=== PATIENT | female | born 1945 | race Caucasian/White ===

== ENCOUNTER 2018-09-01 09:48 | Day surgery (SDC) | payer MEDICARE, BC ==
[2018-08-31 11:35] LABS: BASOPHILS # (AUTO) 0.1 X10'3 (0-0.2); BASOPHILS % (AUTO) 1.2 % (0-1); EOSINOPHILS # (AUTO) 0.1 X10'3 (0-0.9); EOSINOPHILS % (AUTO) 2.2 % (0-6); HEMATOCRIT 40.2 % (35.0-45.0); HEMOGLOBIN 13.5 g/dl (12.0-16.0); LYMPHOCYTES # (AUTO) 1.3 X10'3 (1.1-4.8); LYMPHOCYTES % (AUTO) 22.2 % (21-51); MEAN CORPUSCULAR HEMOGLOBIN 30.4 PG (27.0-31.0); MEAN CORPUSCULAR HGB CONC 33.7 % (33.0-36.5); MEAN CORPUSCULAR VOLUME 90.1 FL (78-98); MEAN PLATELET VOLUME 7.2 FL (7.4-10.4); MONOCYTES # (AUTO) 0.3 X10'3 (0-0.9); MONOCYTES % (AUTO) 5.4 % (2-12); NEUTROPHILS # (AUTO) 4.1 X10'3 (1.8-7.7); PLATELET COUNT 202 X10'3 (140-440); RED BLOOD COUNT 4.46 X10'6 (4.20-5.60); RED CELL DISTRIBUTION WIDTH 13.3 % (11.5-14.5)
[2018-08-31 11:47] LABS: ALBUMIN 3.8 G/DL (3.4-5.0); ANION GAP 6 (8-16); BLOOD UREA NITROGEN 23 MG/DL (7-18); BUN/CREATININE RATIO 29.5 (6.6-38.0); CALCIUM 9.5 MG/DL (8.5-10.1); CHLORIDE 102 MMOL/L (99-107); CREATININE 0.78 MG/DL (0.40-0.90); GLUCOSE 111 MG/DL (70-104); SODIUM 139 MMOL/L (135-145); TOTAL CARBON DIOXIDE 30.6 MMOL/L (24-32); eGFR 73 ML/MIN
[2018-08-31 11:49] LABS: PARTIAL THROMBOPLASTIN TIME 30 SECONDS (22-32); PROTHROMBIN TIME 10.2 SECONDS (9.0-12.0)
[~2018-09-01] VITALS: Ht 165.1 cm; Wt 71.8 kg
[2018-09-01] VITALS (11 sets, daily range): BP systolic 104–161; BP diastolic 55–92
[2018-09-01] MEDS ORDERED: ceFAZolin 1,000 MG in NS 100ML IVPB IV ONE ×2 (10:15→19:00)
[2018-09-01] MEDS ORDERED: PANT-47 PO (11:03)
[2018-09-01] MEDS ORDERED: midazolam 2 mg/2 ml injection ONE ×3 (11:57→13:48)
[2018-09-01] MEDS ORDERED: fentaNYL/PF 50MCG/1 ML 2ML syringe ONE ×3 (11:57→13:48)
[2018-09-01] MEDS ORDERED: ceFAZolin 1GM/D5W- ADD-VANTAGE 50 ML IV ONE (11:59)
[2018-09-01] MEDS ORDERED: ceFAZolin 1000mg inj ONE (11:59)
[2018-09-01] MEDS ORDERED: lidocaine 1%/epinephrine 1:100,000 injection 50ml vial ONE (11:59)
[2018-09-01] MEDS ORDERED: pantoprazole 40 MG vial IV ONE (12:00)
[2018-09-01] MEDS ORDERED: HYDROcodone/acetaminophen 10/325mg tab PO PRN (14:45)
[2018-09-01] MEDS: HYDROcodone/acetaminophen 5mg/325mg tablet PO PRN ×2 (14:56→19:03)
== END 2018-09-01 19:30 | disposition home or self-care (01) ==
LOC: SSTAY O 09:48
PROVIDERS: ATTEND Internal Medicine Cardiovascular Disease
DX: I49.5 Sick sinus syndrome (principal); E11.9 Type 2 diabetes mellitus without complications; E66.9 Obesity, unspecified; E55.9 Vitamin D deficiency, unspecified; I10 Essential (primary) hypertension; E78.5 Hyperlipidemia, unspecified; Z96.651 Presence of right artificial knee joint; Z88.5 Allergy status to narcotic agent; Z90.49 Acquired absence of other specified parts of digestive tract; Z68.26 Body mass index [BMI] 26.0-26.9, adult; Z90.710 Acquired absence of both cervix and uterus; Z98.890 Other specified postprocedural states; Z79.899 Other long term (current) drug therapy
CPT/HCPCS: 33208; 36415; 71046; 80048; 85025; 85610; 85730; 93005; 99152; 99153; C1785; C1898; C9113; J0690; J2250; J3010; J3490; A4565; C1894

== ENCOUNTER 2018-12-06 12:12 | Outpatient (CLI) | payer MEDICARE, BC ==
[2018-12-06] VITALS (21 sets, daily range): BP systolic 108–138; BP diastolic 66–85
[~2018-12-06 12:12] MED LIST: PANT-47 PO
== END 2018-12-06 23:59 | disposition home or self-care (01) ==
LOC: CARD DIAG 12:12
PROVIDERS: ATTEND Internal Medicine Cardiovascular Disease
DX: R42 Dizziness and giddiness (principal); Z96.651 Presence of right artificial knee joint; Z88.5 Allergy status to narcotic agent
CPT/HCPCS: 93660

== ENCOUNTER 2019-07-24 19:16 | Inpatient (IN) | payer MEDICARE, BC ==
[~2019-07-24] VITALS: Ht 165.1 cm; Wt 77.2 kg
[2019-07-24] MEDS ORDERED: ondansetron/PF 4mg/2ml inj IV ONE (19:55)
[2019-07-24] MEDS ORDERED: acetaminophen 325mg tablet PO ONE (19:55)
[2019-07-24] MEDS ORDERED: nitroGLYCERIN 0.4mg SUBLingual tab SL PRN (19:55)
[2019-07-24] MEDS ORDERED: aspirin 81mg tab.chew PO ONE (19:55)
[2019-07-24 20:01] LABS: BASOPHILS # (AUTO) 0.1 X10'3 (0-0.2); BASOPHILS % (AUTO) 0.9 % (0-1); EOSINOPHILS # (AUTO) 0.1 X10'3 (0-0.9); EOSINOPHILS % (AUTO) 1.8 % (0-6); HEMATOCRIT 40.7 % (35.0-45.0); HEMOGLOBIN 13.9 g/dl (12.0-16.0); LYMPHOCYTES % (AUTO) 15.2 % (21-51); MEAN CORPUSCULAR HEMOGLOBIN 30.7 PG (27.0-31.0); MEAN CORPUSCULAR HGB CONC 34.2 g/dL (33.0-36.5); MEAN CORPUSCULAR VOLUME 89.6 FL (78-98); MEAN PLATELET VOLUME 7.6 FL (7.4-10.4); MONOCYTES # (AUTO) 0.3 X10'3 (0-0.9); MONOCYTES % (AUTO) 4.7 % (2-12); NEUTROPHILS # (AUTO) 5.2 X10'3 (1.8-7.7); NEUTROPHILS % (AUTO) 77.4 % (42-75); PLATELET COUNT 164 X10'3 (140-440); RED BLOOD COUNT 4.54 X10'6 (4.20-5.60); RED CELL DISTRIBUTION WIDTH 13.1 % (11.5-14.5); WHITE BLOOD COUNT 6.7 X10'3 (4.5-11.0)
[2019-07-24 20:11] LABS: PARTIAL THROMBOPLASTIN TIME 29 SECONDS (22-32)
[2019-07-24 20:13] LABS: ALANINE AMINOTRANSFERASE 38 U/L (12-78); ALBUMIN 3.8 G/DL (3.4-5.0); ALKALINE PHOSPHATASE 70 IU/L (46-116); ANION GAP 7 (8-16); ASPARTATE AMINO TRANSFERASE 60 U/L (10-37); BILIRUBIN,TOTAL 0.4 MG/DL (0.1-1.0); BLOOD UREA NITROGEN 15 MG/DL (7-18); CALCIUM 9.3 MG/DL (8.5-10.1); CHLORIDE 105 MMOL/L (99-107); CREATININE 0.79 MG/DL (0.40-0.90); GLUCOSE 123 MG/DL (70-104); POTASSIUM 3.7 MMOL/L (3.5-5.1); SODIUM 139 MMOL/L (135-145); TOTAL CARBON DIOXIDE 26.8 MMOL/L (24-32); TOTAL PROTEIN 7.6 G/DL (6.4-8.2); eGFR 71 ML/MIN
[2019-07-24] MEDS ORDERED: enoxaparin 100mg/ml syringe SUBCUT ONE (20:20)
--- NOTE | 2019-07-24 20:22 | NUR ---
rec'd call from [facility] - they state the pacer is functionally properly. She is having an occasional PVC and did have one high ventricular rate but it was not long enough to record. She is A paced 80% and V paced 72%
[2019-07-24] MEDS ORDERED: enoxaparin 80mg/0.8ml syringe SUBCUT ONE (20:25)
[2019-07-24] MEDS ORDERED: POTASSIUM PO (20:49)
[2019-07-24] MEDS ORDERED: FURO40TA4 PO (20:49)
[2019-07-24] MEDS ORDERED: TRAZ-251 PO (20:49)
[2019-07-24] MEDS ORDERED: OMEP-50 PO (20:49)
[2019-07-24] MEDS ORDERED: heparin 25,000 UNIT/250ml bag 250 ML IV SCH (20:54)
[2019-07-24] MEDS ORDERED: heparin 10,000 units/1 ML INJ IV ONE (20:55)
[2019-07-24] MEDS ORDERED: tirofiban 5mg in NS 100mL 100 ML IV SCH (20:55)
[2019-07-24] MEDS ORDERED: atorvastatin 20mg tablet PO SCH (21:00)
--- NOTE | 2019-07-24 21:10 | NUR ---
PER PHARMACY THEY WILL RETIME THE HEPARIN DRIP FOR 0300 AND CANCEL THE BOLUS SINCE THE PATIENT GOT LOVENOX. I CANCELLED THE PTT AND RETIMED IT FOR 0230 SO WE WOULD HAVE THE RESULT PRIOR TO STARTING THE HEPARIN. OK TO START AGGRASTAT DIRECTED ON MAR
[2019-07-24] MEDS ORDERED: HYDROcodone/acetaminophen 5mg/325mg tablet PO PRN (21:15)
[2019-07-24] MEDS ORDERED: magnesium hydroxide 30ml (MOM) UD suspension PO PRN (21:15)
[2019-07-24] MEDS ORDERED: ondansetron/PF 4mg/2ml inj IV PRN (21:15)
[2019-07-24] MEDS ORDERED: acetaminophen 325mg tablet PO PRN (21:15)
[2019-07-24] MEDS ORDERED: tirofiban 12.5mg in NS 250mL 250 ML IV SCH (21:19)
--- NOTE | 2019-07-24 21:30 | NUR ---
received pt report from Yoig TSANG in the ER. Had opportunity to ask questions.
--- NOTE | 2019-07-24 21:45 | NUR ---
pt arrived to unit with all belongings, tele attached, call light in reach, pt oriented to unit, VS stable.
[2019-07-24 22:00] VITALS: BP 136/77
[2019-07-24] MEDS: normal saline 1000ml 1,000 ML IV SCH (22:24)
[2019-07-25] VITALS (17 sets, daily range): BP systolic 99–128; BP diastolic 42–77
[2019-07-25] MEDS: mag hydrox/Alum hydrox/simeth 30ml oral suspension PO PRN ×3 (00:10→19:28)
[2019-07-25 01:44] LABS: BASOPHILS % (AUTO) 0.6 % (0-1); EOSINOPHILS # (AUTO) 0.1 X10'3 (0-0.9); EOSINOPHILS % (AUTO) 1.2 % (0-6); HEMATOCRIT 36.4 % (35.0-45.0); HEMOGLOBIN 12.5 g/dl (12.0-16.0); LYMPHOCYTES # (AUTO) 0.9 X10'3 (1.1-4.8); LYMPHOCYTES % (AUTO) 15.9 % (21-51); MEAN CORPUSCULAR HEMOGLOBIN 30.9 PG (27.0-31.0); MEAN CORPUSCULAR HGB CONC 34.4 g/dL (33.0-36.5); MEAN CORPUSCULAR VOLUME 89.8 FL (78-98); MEAN PLATELET VOLUME 7.5 FL (7.4-10.4); MONOCYTES # (AUTO) 0.3 X10'3 (0-0.9); MONOCYTES % (AUTO) 5.2 % (2-12); NEUTROPHILS # (AUTO) 4.6 X10'3 (1.8-7.7); NEUTROPHILS % (AUTO) 77.1 % (42-75); PLATELET COUNT 163 X10'3 (140-440); RED BLOOD COUNT 4.06 X10'6 (4.20-5.60); RED CELL DISTRIBUTION WIDTH 13.3 % (11.5-14.5); WHITE BLOOD COUNT 5.9 X10'3 (4.5-11.0)
[2019-07-25 02:00] LABS: ANION GAP 4 (8-16); BLOOD UREA NITROGEN 16 MG/DL (7-18); BUN/CREATININE RATIO 17.2 (6.6-38.0); CALCIUM 8.5 MG/DL (8.5-10.1); CHLORIDE 108 MMOL/L (99-107); CHOL/HDL RATIO 2.3 (0.00-4.99); CHOLESTEROL 126 MG/DL (0-200); CREATININE 0.93 MG/DL (0.40-0.90); GLUCOSE 142 MG/DL (70-104); HDL CHOLESTEROL 54 MG/DL (35-60); LDL CHOLESTEROL 67 MG/DL (50-100); POTASSIUM 4.2 MMOL/L (3.5-5.1); SODIUM 142 MMOL/L (135-145); TOTAL CARBON DIOXIDE 30.4 MMOL/L (24-32); TRIGLYCERIDES 62 MG/DL (20-135); eGFR 59 ML/MIN
[2019-07-25] MEDS ORDERED: heparin 25,000 UNIT/250ml bag 250 ML IV SCH ×2 (03:00)
[2019-07-25] MEDS ORDERED: heparin 10,000 units/1 ML INJ IV PRN (06:00)
--- NOTE | 2019-07-25 06:22 | NUR ---
Problems reprioritized. Patient report given, questions answered & plan of care reviewed with Minal Nathan RN.
--- NOTE | 2019-07-25 06:54 | NUR ---
Patient in room PCU 3012. I have received report from TRINH Hussein and had the opportunity to ask questions and assume patient care.
[2019-07-25] MEDS: normal saline 1000ml 1,000 ML IV SCH ×2 (07:12→17:12)
[2019-07-25] MEDS ORDERED: nitroGLYCERIN-Tridil 50MG/D5W 250 ML IV ONE (07:50)
[2019-07-25] MEDS ORDERED: iohexol 350 MG/ML 50ML vial IV ONE (07:51)
[2019-07-25] MEDS ORDERED: fentaNYL/PF 50MCG/1 ML 2ML syringe ONE (07:51)
[2019-07-25] MEDS ORDERED: midazolam 2 mg/2 ml injection ONE (07:51)
[2019-07-25] MEDS ORDERED: LIDOcaine 1% (10mg/ml)w/preservative injection 20ml MDV ONE (07:51)
[2019-07-25] MEDS ORDERED: iohexol 350MG/ML 100ml bottle IV ONE (07:51)
[2019-07-25] MEDS ORDERED: heparin 1,000unit/ml 10ml vial 10 ML ONE (07:51)
[2019-07-25] MEDS: atorvastatin 20mg tablet PO SCH (07:52)
[2019-07-25] MEDS: aspirin 81mg tablet.DR PO SCH (07:52)
[2019-07-25] MEDS ORDERED: metoprolol tartrate 12.5mg (1/2 tablet) PO SCH (08:00)
[2019-07-25] MEDS ORDERED: POTA10TA10 PO (08:12)
[2019-07-25] MEDS: acetaminophen 325mg tablet PO PRN ×2 (09:52→22:34)
[2019-07-25] MEDS: losartan 25mg tablet PO SCH (12:05)
--- NOTE | 2019-07-25 18:40 | NUR ---
Problems reprioritized. Patient report given, questions answered & plan of care reviewed with David TSANG. Patient stable at transfer of care.
--- NOTE | 2019-07-25 18:56 | NUR ---
Patient in room PCU 3012. I have received report from Minal TSANG and had the opportunity to ask questions and assume patient care.
[2019-07-25] MEDS: carvedilol 6.25mg tablet PO SCH (19:29)
[2019-07-26 02:30] VITALS: BP 120/59
[2019-07-26] MEDS: normal saline 1000ml 1,000 ML IV SCH (03:08)
[2019-07-26 05:55] LABS: BASOPHILS % (AUTO) 0.5 % (0-1); EOSINOPHILS # (AUTO) 0.2 X10'3 (0-0.9); EOSINOPHILS % (AUTO) 4.7 % (0-6); HEMATOCRIT 32.7 % (35.0-45.0); HEMOGLOBIN 11.3 g/dl (12.0-16.0); LYMPHOCYTES # (AUTO) 1.1 X10'3 (1.1-4.8); LYMPHOCYTES % (AUTO) 26.2 % (21-51); MEAN CORPUSCULAR HEMOGLOBIN 31.3 PG (27.0-31.0); MEAN CORPUSCULAR HGB CONC 34.4 g/dL (33.0-36.5); MEAN CORPUSCULAR VOLUME 90.8 FL (78-98); MEAN PLATELET VOLUME 7.7 FL (7.4-10.4); MONOCYTES # (AUTO) 0.3 X10'3 (0-0.9); MONOCYTES % (AUTO) 6.3 % (2-12); NEUTROPHILS # (AUTO) 2.6 X10'3 (1.8-7.7); NEUTROPHILS % (AUTO) 62.3 % (42-75); PLATELET COUNT 126 X10'3 (140-440); RED CELL DISTRIBUTION WIDTH 13.2 % (11.5-14.5); WHITE BLOOD COUNT 4.1 X10'3 (4.5-11.0)
[2019-07-26 06:05] LABS: ALBUMIN 2.7 G/DL (3.4-5.0); ANION GAP 6 (8-16); BLOOD UREA NITROGEN 17 MG/DL (7-18); BUN/CREATININE RATIO 22.7 (6.6-38.0); CHLORIDE 111 MMOL/L (99-107); CREATININE 0.75 MG/DL (0.40-0.90); GLUCOSE 84 MG/DL (70-104); POTASSIUM 4.3 MMOL/L (3.5-5.1); SODIUM 145 MMOL/L (135-145); TOTAL CARBON DIOXIDE 28.1 MMOL/L (24-32); eGFR 76 ML/MIN
--- NOTE | 2019-07-26 06:14 | NUR ---
Problems reprioritized. Patient report given, questions answered & plan of care reviewed with Minal TSANG.
--- NOTE | 2019-07-26 06:22 | NUR ---
Patient in room PCU 3012. I have received report from David TSANG and had the opportunity to ask questions and assume patient care.
[2019-07-26 07:12] VITALS: BP 144/67
[2019-07-26] MEDS: losartan 25mg tablet PO SCH (08:21)
[2019-07-26] MEDS: carvedilol 6.25mg tablet PO SCH (08:21)
[2019-07-26] MEDS: aspirin 81mg tablet.DR PO SCH (08:21)
[2019-07-26] MEDS: acetaminophen 325mg tablet PO PRN (08:23)
[2019-07-26] MEDS ORDERED: spironolactone 25 MG tablet PO SCH (08:30)
[2019-07-26] MEDS: atorvastatin 20mg tablet PO SCH (08:37)
[2019-07-26 12:09] VITALS: BP 136/66
[2019-07-26] MEDS: mag hydrox/Alum hydrox/simeth 30ml oral suspension PO PRN (12:20)
[2019-07-26] MEDS ORDERED: SPIR25TA PO (12:28)
[2019-07-26] MEDS ORDERED: CARV6.253 PO (12:28)
[2019-07-26] MEDS ORDERED: ATOR20TA66 PO (12:28)
[2019-07-26] MEDS ORDERED: ASPI-1071 PO (12:28)
[2019-07-26] MEDS ORDERED: LOSA25TA41 PO (12:28)
[2019-07-26 15:00] VITALS: BP 50/66
--- NOTE | 2019-07-26 17:30 | NUR ---
Patient discharged at 1634 home with . Patient reviewed discharge packet before signing and being sent home along with all other belongings. Patient new Rx's were called in to [facility] in [place]. PIV was removed with cannula intact and telemetry monitoring was d/c'd. Patient was wheeled down by staff and left via private vehicle with .
== END 2019-07-26 16:33 | disposition home or self-care (01) | DRG 286 ==
LOC: ER 19:16 → PCU 3S 21:35
PROVIDERS: ADMIT Hospitalist; ATTEND Family Medicine
PROC: 4B02XSZ Measurement of Cardiac Pacemaker, External Approach (ICD-10-PCS; principal; 2019-07-24)
PROC: B2111ZZ Fluoroscopy of Multiple Coronary Arteries using Low Osmolar Contrast (ICD-10-PCS; 2019-07-25)
PROC: B2151ZZ Fluoroscopy of Left Heart using Low Osmolar Contrast (ICD-10-PCS; 2019-07-25)
PROC: 4A023N8 Measurement of Cardiac Sampling and Pressure, Bilateral, Percutaneous Approach (ICD-10-PCS; 2019-07-25)
DX: I51.81 Takotsubo syndrome (principal); I50.21 Acute systolic (congestive) heart failure; I50.9 Heart failure, unspecified; E11.9 Type 2 diabetes mellitus without complications; G24.9 Dystonia, unspecified; I25.10 Atherosclerotic heart disease of native coronary artery without angina pectoris; I49.5 Sick sinus syndrome; Z96.651 Presence of right artificial knee joint; G89.29 Other chronic pain; M54.5 Low back pain; Z88.6 Allergy status to analgesic agent; Z79.82 Long term (current) use of aspirin; Z90.710 Acquired absence of both cervix and uterus; Z95.0 Presence of cardiac pacemaker; Z98.49 Cataract extraction status, unspecified eye
CPT/HCPCS: 36415; 71045; 80048; 80053; 80061; 83880; 84484; 85025; 85347; 85610; 85730; 87081; 93005; 93306; 93458; 96372; 96374; 99152; 99153; 99291; A4620; A6258; C1760; C1769; G0378; J1644; J1650; J2001; J2250; J2405; J3010; J3246; J3490; J7030; Q9967

== ENCOUNTER 2019-10-13 11:33 | Inpatient (IN) | payer MEDICARE, BC ==
[~2019-10-13] VITALS: Ht 165.1 cm; Wt 75.5 kg
[~2019-10-13 11:33] MED LIST changes: +ASPI-1071 PO; +ATOR20TA66 PO; +CARV6.253 PO; +FURO40TA4 PO; +LOSA25TA41 PO; +OMEP-50 PO; -PANT-47 PO; +POTA10TA10 PO; +SPIR25TA PO; +TRAZ-251 PO
[2019-10-13 12:49] LABS: BASOPHILS # (AUTO) 0.1 X10'3 (0-0.2); BASOPHILS % (AUTO) 0.8 % (0-1); EOSINOPHILS # (AUTO) 0.2 X10'3 (0-0.9); EOSINOPHILS % (AUTO) 3.6 % (0-6); HEMATOCRIT 40.6 % (35.0-45.0); LYMPHOCYTES # (AUTO) 1.6 X10'3 (1.1-4.8); LYMPHOCYTES % (AUTO) 25.5 % (21-51); MEAN CORPUSCULAR HEMOGLOBIN 30.7 PG (27.0-31.0); MEAN CORPUSCULAR HGB CONC 34.4 g/dL (33.0-36.5); MEAN CORPUSCULAR VOLUME 89.2 FL (78-98); MEAN PLATELET VOLUME 7.7 FL (7.4-10.4); MONOCYTES # (AUTO) 0.3 X10'3 (0-0.9); MONOCYTES % (AUTO) 5.4 % (2-12); NEUTROPHILS # (AUTO) 4.1 X10'3 (1.8-7.7); NEUTROPHILS % (AUTO) 64.7 % (42-75); PLATELET COUNT 200 X10'3 (140-440); RED BLOOD COUNT 4.55 X10'6 (4.20-5.60); RED CELL DISTRIBUTION WIDTH 13.6 % (11.5-14.5); WHITE BLOOD COUNT 6.4 X10'3 (4.5-11.0)
[2019-10-13 13:19] LABS: ALANINE AMINOTRANSFERASE 23 U/L (12-78); ALBUMIN 3.9 G/DL (3.4-5.0); ALBUMIN/GLOBULIN RATIO 1.1 (1.1-1.5); ALKALINE PHOSPHATASE 67 IU/L (46-116); ANION GAP 6 (8-16); ASPARTATE AMINO TRANSFERASE 26 U/L (10-37); BILIRUBIN,TOTAL 0.5 MG/DL (0.1-1.0); BLOOD UREA NITROGEN 26 MG/DL (7-18); BUN/CREATININE RATIO 26.5 (6.6-38.0); CALCIUM 9.7 MG/DL (8.5-10.1); CHLORIDE 107 MMOL/L (99-107); CREATININE 0.98 MG/DL (0.40-0.90); GLUCOSE 116 MG/DL (70-104); POTASSIUM 4.5 MMOL/L (3.5-5.1); SODIUM 141 MMOL/L (135-145); TOTAL CARBON DIOXIDE 27.9 MMOL/L (24-32); TOTAL PROTEIN 7.4 G/DL (6.4-8.2); eGFR 56 ML/MIN
[2019-10-13] MEDS ORDERED: acetaminophen 325mg tablet PO PRN ×2 (13:50)
[2019-10-13] MEDS ORDERED: potassium Cl 20 mEq SR tablet PO PRN ×2 (13:50)
[2019-10-13] MEDS ORDERED: magnesium 4gm in 100ml NS 100 ML IV PRN (13:50)
[2019-10-13] MEDS ORDERED: potassium CL 10mEq/100ml bag 100 ML IV PRN ×2 (13:50)
[2019-10-13] MEDS ORDERED: acetaminophen 650mg rectal suppository RC PRN (13:50)
[2019-10-13] MEDS ORDERED: mag hydrox/Alum hydrox/simeth 30ml oral suspension PO PRN (13:50)
[2019-10-13] MEDS ORDERED: ondansetron/PF 4mg/2ml inj IV PRN (13:50)
[2019-10-13] MEDS ORDERED: magnesium hydroxide 30ml (MOM) UD suspension PO PRN (13:50)
[2019-10-13] MEDS ORDERED: magnesium 2GM in 50ml NS 50 ML IV PRN (13:50)
[2019-10-13] MEDS ORDERED: magnesium Cl slow-release 64mg tablet PO PRN (13:50)
[2019-10-13] MEDS ORDERED: HYDROcodone/acetaminophen 5mg/325mg tablet PO PRN (13:50)
[2019-10-13] MEDS ORDERED: metoclopramide 5 mg/ml inj IV PRN (13:50)
[2019-10-13] MEDS ORDERED: HYDROcodone/acetaminophen 10/325mg tab PO PRN (13:50)
--- NOTE | 2019-10-13 14:00 | NUR ---
ATTEMPTED TO CALL DR. SINGH, HIS CELL VOICEMAIL BOX IS FULL. OFFICE STATES THAT HE IS OUT OF THE OFFICE.
--- NOTE | 2019-10-13 14:35 | NUR ---
ECHO AT BEDSIDE.
[2019-10-13] MEDS ORDERED: LINA145C PO (15:15)
[2019-10-13] MEDS ORDERED: OMEP20CA15 PO (15:15)
[2019-10-13] MEDS ORDERED: ATOR-2 PO (15:15)
[2019-10-13] MEDS ORDERED: LOSA25TA41 PO (15:15)
[2019-10-13] MEDS ORDERED: SPIR25TA5 PO (15:15)
[2019-10-13] MEDS ORDERED: [UNRECOGNIZED DRUG - CODE] PO (15:15)
[2019-10-13] MEDS ORDERED: CARV6.252 PO (15:15)
[2019-10-13] MEDS ORDERED: POTA10TA PO (15:15)
[2019-10-13] MEDS: normal saline 1000ml 1,000 ML IV SCH ×2 (15:30→23:50)
--- NOTE | 2019-10-13 15:30 | NUR ---
Patient in room ED 5. I have received report from Iwona TSANG ED and had the opportunity to ask questions and assume patient care.
--- NOTE | 2019-10-13 15:40 | NUR ---
Pt brought to room from ED. Pt Oriented to room and call light. Vitals: BP: 131/68, O2:100%, HR: 72, RR:18, Temp: 98.9. Pt alert and oriented and stable.
[2019-10-13 15:45] VITALS: BP 131/68
[2019-10-13] MEDS ORDERED: iohexol 300 MG/1 ML 50ml polymer ONE (17:23)
[2019-10-13] MEDS ORDERED: iohexol 300mg/ml 100ml inj. ONE (17:23)
--- NOTE | 2019-10-13 17:33 | NUR ---
Pt taken down to CT
--- NOTE | 2019-10-13 18:36 | NUR ---
Problems reprioritized. Patient report given, questions answered & plan of care reviewed with TRINH Hughes.
[2019-10-13 19:00] VITALS: BP 123/70
[2019-10-13] MEDS: potassium chloride 10mEq ER tablet PO SCH (20:00)
[2019-10-13] MEDS: K and/or MAG REPLACEMENT MC SCH (20:00)
[2019-10-13] MEDS: carvedilol 6.25mg tablet PO SCH (20:00)
[2019-10-13] MEDS ORDERED: temazepam 15mg capsule PO PRN (21:00)
[2019-10-13 23:00] VITALS: BP 90/57
[2019-10-14 02:00] VITALS: BP 112/48
[2019-10-14 06:00] VITALS: BP 114/51
--- NOTE | 2019-10-14 06:27 | NUR ---
Problems reprioritized. Patient report given, questions answered & plan of care reviewed with Moira TSANG.
--- NOTE | 2019-10-14 06:34 | NUR ---
Patient in room PCU 3025. I have received report from TRINH Hughes and had the opportunity to ask questions and assume patient care.
[2019-10-14 07:00] LABS: BASOPHILS % (AUTO) 0.9 % (0-1); EOSINOPHILS # (AUTO) 0.2 X10'3 (0-0.9); EOSINOPHILS % (AUTO) 4.8 % (0-6); HEMATOCRIT 37.3 % (35.0-45.0); HEMOGLOBIN 12.7 g/dl (12.0-16.0); LYMPHOCYTES # (AUTO) 1.2 X10'3 (1.1-4.8); LYMPHOCYTES % (AUTO) 25.5 % (21-51); MEAN CORPUSCULAR HEMOGLOBIN 30.6 PG (27.0-31.0); MEAN CORPUSCULAR HGB CONC 34.1 g/dL (33.0-36.5); MEAN CORPUSCULAR VOLUME 89.6 FL (78-98); MEAN PLATELET VOLUME 7.7 FL (7.4-10.4); MONOCYTES # (AUTO) 0.4 X10'3 (0-0.9); MONOCYTES % (AUTO) 7.7 % (2-12); NEUTROPHILS # (AUTO) 2.9 X10'3 (1.8-7.7); NEUTROPHILS % (AUTO) 61.1 % (42-75); PLATELET COUNT 169 X10'3 (140-440); RED BLOOD COUNT 4.16 X10'6 (4.20-5.60); RED CELL DISTRIBUTION WIDTH 13.9 % (11.5-14.5); WHITE BLOOD COUNT 4.7 X10'3 (4.5-11.0)
[2019-10-14] MEDS ORDERED: pantoprazole 40mg Tablet.DR PO SCH (07:30)
[2019-10-14] MEDS ORDERED: [UNRECOGNIZED DRUG - OTHER] PO SCH (07:30)
[2019-10-14 07:33] LABS: ALANINE AMINOTRANSFERASE 20 U/L (12-78); ALBUMIN 3.2 G/DL (3.4-5.0); ALBUMIN/GLOBULIN RATIO 1.1 (1.1-1.5); ALKALINE PHOSPHATASE 59 IU/L (46-116); ANION GAP 6 (8-16); ASPARTATE AMINO TRANSFERASE 21 U/L (10-37); BILIRUBIN,TOTAL 0.4 MG/DL (0.1-1.0); BLOOD UREA NITROGEN 19 MG/DL (7-18); BUN/CREATININE RATIO 20.7 (6.6-38.0); CALCIUM 8.5 MG/DL (8.5-10.1); CHLORIDE 109 MMOL/L (99-107); CREATININE 0.92 MG/DL (0.40-0.90); GLUCOSE 110 MG/DL (70-104); MAGNESIUM 1.8 MG/DL (1.5-2.4); PHOSPHORUS 4.2 MG/DL (2.3-4.5); POTASSIUM 4.7 MMOL/L (3.5-5.1); SODIUM 143 MMOL/L (135-145); TOTAL CARBON DIOXIDE 28.2 MMOL/L (24-32); TOTAL PROTEIN 6.2 G/DL (6.4-8.2); eGFR 60 ML/MIN
[2019-10-14 08:00] VITALS: BP_SYST 85; BP_SYST 89; BP_SYST 90; BP_DIAS 41; BP_DIAS 53; BP_DIAS 56
[2019-10-14] MEDS ORDERED: spironolactone 25 MG tablet PO SCH (08:00)
[2019-10-14] MEDS ORDERED: enoxaparin 40mg/0.4ml syringe SQ SCH (08:00)
[2019-10-14] MEDS ORDERED: losartan 25mg tablet PO SCH (08:00)
[2019-10-14] MEDS ORDERED: atorvastatin 20mg tablet PO SCH (08:00)
[2019-10-14] MEDS: potassium chloride 10mEq ER tablet PO SCH (08:23)
[2019-10-14] MEDS: carvedilol 6.25mg tablet PO SCH (08:23)
[2019-10-14] MEDS: K and/or MAG REPLACEMENT MC SCH (08:23)
[2019-10-14] MEDS: normal saline 1000ml 1,000 ML IV SCH (10:14)
--- NOTE | 2019-10-14 14:26 | NUR ---
Pt is stable for discharge per MD orders. Reviewed discharge paperwork with pt and pt signed. Answered any questions pt had regarding discharge. No new medications needed to be called into pharmacy. All belongings sent with pt. Tele monitor removed. PIV removed with cannula intact. Pt wheeled to lobby with facility staff and sent home in a private vehicle with .
--- NOTE | 2019-10-18 10:57 | NUR ---
Case Management DC follow up: spoke w/pt via telephone: pt stated she is feeling better, but is still experiencing some episodes of light headedness when she stands up. Sometimes experiences a MCALLISTER and a little nausea when turns head to L. Symptoms resolve in a short time. Pt agreed to retrieve a walker that she has to have available to steady herself when sits up from supine position to standing. Pt verbalized understanding on s/s that would warrant a trip back to the hospital. Pt spouse w/her at all times. pt denies pain, cp, SOB, resp distress at this time. pt understands medications and why they are prescribed. All needs met and questions answered at MD. pt has follow up appt tomorrow 10/19/2019 w/PCP/Dr Navas, and a follow up w/Dr Flores r/t pacer 10/31/2019. No further questions at this time
== END 2019-10-14 14:49 | disposition home or self-care (01) | DRG 312 ==
LOC: ER 11:33 → ED HOLD 13:50 → EDBEDREQ 15:02 → PCU 3S 16:12
PROVIDERS: ADMIT Family Medicine; ATTEND Family Medicine
PROC: BW281ZZ Computerized Tomography (CT Scan) of Head using Low Osmolar Contrast (ICD-10-PCS; principal; 2019-10-13)
PROC: BW2F1ZZ Computerized Tomography (CT Scan) of Neck using Low Osmolar Contrast (ICD-10-PCS; 2019-10-13)
DX: R55 Syncope and collapse (principal); I24.9 Acute ischemic heart disease, unspecified; N17.9 Acute kidney failure, unspecified; Z96.651 Presence of right artificial knee joint; I10 Essential (primary) hypertension; I49.5 Sick sinus syndrome; I25.10 Atherosclerotic heart disease of native coronary artery without angina pectoris; G89.29 Other chronic pain; M54.5 Low back pain; Z90.710 Acquired absence of both cervix and uterus; Z95.0 Presence of cardiac pacemaker; Z98.49 Cataract extraction status, unspecified eye; Z88.5 Allergy status to narcotic agent; Z90.49 Acquired absence of other specified parts of digestive tract
CPT/HCPCS: 36415; 70470; 70491; 71045; 80053; 83735; 84100; 84484; 85025; 87081; 93005; 93308; 97116; 97161; 97530; 99285; G0378; J1650; J7030; Q9967

== ENCOUNTER 2019-11-07 10:42 | Outpatient (CLI) | payer MEDICARE, BC ==
[2019-11-07] VITALS (22 sets, daily range): BP systolic 97–125; BP diastolic 62–85
[~2019-11-07 10:42] MED LIST changes: -ASPI-1071 PO; +ATOR-2 PO; -ATOR20TA66 PO; +CARV6.252 PO; -CARV6.253 PO; -FURO40TA4 PO; +LINA145C PO; -OMEP-50 PO; +OMEP20CA15 PO; +POTA10TA PO; -POTA10TA10 PO; -SPIR25TA PO; +SPIR25TA5 PO; -TRAZ-251 PO; +[UNRECOGNIZED DRUG - CODE] PO
[2019-11-08] MEDS ORDERED: ASPI81TA52 PO (07:11)
== END 2019-11-07 23:59 | disposition home or self-care (01) ==
LOC: CARD DIAG 10:42
PROVIDERS: ATTEND Internal Medicine Cardiovascular Disease
DX: I49.5 Sick sinus syndrome (principal); R42 Dizziness and giddiness; Z95.0 Presence of cardiac pacemaker
CPT/HCPCS: 93660

== ENCOUNTER 2019-11-08 06:41 | Day surgery (SDC) | payer MEDICARE, BC ==
[2019-11-07 13:24] LABS: PARTIAL THROMBOPLASTIN TIME 28 SECONDS (22-32)
[2019-11-07 13:29] LABS: BASOPHILS # (AUTO) 0.1 X10'3 (0-0.2); EOSINOPHILS # (AUTO) 0.3 X10'3 (0-0.9); EOSINOPHILS % (AUTO) 5.4 % (0-6); HEMATOCRIT 39.8 % (35.0-45.0); HEMOGLOBIN 13.4 g/dl (12.0-16.0); LYMPHOCYTES # (AUTO) 1.8 X10'3 (1.1-4.8); LYMPHOCYTES % (AUTO) 27.7 % (21-51); MEAN CORPUSCULAR HEMOGLOBIN 30.6 PG (27.0-31.0); MEAN CORPUSCULAR HGB CONC 33.7 g/dL (33.0-36.5); MEAN CORPUSCULAR VOLUME 90.7 FL (78-98); MONOCYTES # (AUTO) 0.4 X10'3 (0-0.9); MONOCYTES % (AUTO) 6.6 % (2-12); NEUTROPHILS # (AUTO) 3.8 X10'3 (1.8-7.7); NEUTROPHILS % (AUTO) 59.3 % (42-75); PLATELET COUNT 197 X10'3 (140-440); RED BLOOD COUNT 4.38 X10'6 (4.20-5.60); RED CELL DISTRIBUTION WIDTH 14.2 % (11.5-14.5); WHITE BLOOD COUNT 6.3 X10'3 (4.5-11.0)
[2019-11-07 13:30] LABS: ALBUMIN 3.8 G/DL (3.4-5.0); ANION GAP 5 (8-16); BLOOD UREA NITROGEN 25 MG/DL (7-18); BUN/CREATININE RATIO 28.4 (6.6-38.0); CALCIUM 9.1 MG/DL (8.5-10.1); CHLORIDE 106 MMOL/L (99-107); CREATININE 0.88 MG/DL (0.40-0.90); GLUCOSE 99 MG/DL (70-104); POTASSIUM 4.3 MMOL/L (3.5-5.1); SODIUM 142 MMOL/L (135-145); TOTAL CARBON DIOXIDE 31.4 MMOL/L (24-32); eGFR 63 ML/MIN
[~2019-11-08] VITALS: Ht 165.1 cm; Wt 77.8 kg
[2019-11-08] VITALS (10 sets, daily range): BP systolic 106–162; BP diastolic 58–87
[2019-11-08] MEDS ORDERED: cefazolin/dext.iso 2gm/100ml 100 ML IV ONE (07:00)
[2019-11-08] MEDS ORDERED: normal saline 1000ml 1,000 ML IV SCH (07:00)
[2019-11-08] MEDS ORDERED: ASPI81TA52 PO (07:11)
[2019-11-08] MEDS ORDERED: LIDOcaine 1% W/epiNEPHrine 1:100,000 20ml vial ONE (09:28)
[2019-11-08] MEDS ORDERED: midazolam 2 mg/2 ml injection ONE (09:28)
[2019-11-08] MEDS ORDERED: ceFAZolin 1000mg inj ONE (09:28)
[2019-11-08] MEDS ORDERED: fentaNYL/PF 50MCG/1 ML 2ML syringe ONE (09:28)
[2019-11-08] MEDS ORDERED: HYDROcodone/acetaminophen 5mg/325mg tablet PO PRN (12:10)
[2019-11-08] MEDS ORDERED: HYDROcodone/acetaminophen 10/325mg tab PO PRN (12:10)
--- NOTE | 2019-11-08 12:40 | NUR ---
P/C TO HEATHER TO INFORM HIM THAT PT IS IN ROOM AND D/C TIME. HE WILL COME IN AT 3PM
[2019-11-08] MEDS ORDERED: vancomycin/NS 1 GM ADD-VANTAGE 250 ML X 1 DOSE IV ONE (13:00)
== END 2019-11-08 16:10 | disposition home or self-care (01) ==
LOC: SSTAY O 06:41
PROVIDERS: ATTEND Internal Medicine Cardiovascular Disease
DX: T82.198A Other mechanical complication of other cardiac electronic device, initial encounter (principal); Z79.01 Long term (current) use of anticoagulants; Z79.899 Other long term (current) drug therapy; Z79.82 Long term (current) use of aspirin; Y83.8 Other surgical procedures as the cause of abnormal reaction of the patient, or of later complication, without mention of misadventure at the time of the procedure; Y92.89 Other specified places as the place of occurrence of the external cause
CPT/HCPCS: 33215; 33216; 33235; 36415; 80048; 85025; 85610; 85730; 93005; 99152; 99153; C1894; C1898; J0690; J2250; J3010; J3370; J7030; 33234; 76937; A4565; A4620; A6258; A6449

== ENCOUNTER 2022-09-15 07:43 | Outpatient (CLI) | payer MEDICARE, BC ==
[2022-09-15] VITALS (22 sets, daily range): BP systolic 104–131; BP diastolic 61–78
[~2022-09-15 07:43] MED LIST changes: +APIX5TAB3 PO; +ASPI81TA52 PO; +FLUD0.1T PO; +HYDR-3964 PO; -LINA145C PO; -POTA10TA PO; +PRUC2TAB PO; -[UNRECOGNIZED DRUG - CODE] PO; +[UNRECOGNIZED DRUG - OTHER] PO
== END 2022-09-15 23:59 | disposition home or self-care (01) ==
LOC: CARD DIAG 07:43
PROVIDERS: ATTEND Internal Medicine Cardiovascular Disease
DX: R42 Dizziness and giddiness (principal)
CPT/HCPCS: 93660

== ENCOUNTER 2022-10-27 07:22 | Emergency (ER) | payer MEDICARE, BC ==
[~2022-10-27] VITALS: Ht 167.6 cm; Wt 78.6 kg
[~2022-10-27 07:22] MED LIST changes: -FLUD0.1T PO; +FURO40TA4 PO; -HYDR-3964 PO; +LINA290C PO; -LOSA25TA41 PO; +POTA-206 PO; -PRUC2TAB PO; -SPIR25TA5 PO; -[UNRECOGNIZED DRUG - OTHER] PO
[2022-10-27] MEDS ORDERED: normal saline 1000ml 1,000 ML IV ONE (08:15)
[2022-10-27 08:48] LABS: BASOPHILS # (AUTO) 0.1 X10'3 (0-0.2); EOSINOPHILS # (AUTO) 0.2 X10'3 (0-0.9); EOSINOPHILS % (AUTO) 3.1 % (0-6); HEMATOCRIT 38.3 % (35.0-45.0); HEMOGLOBIN 13.1 g/dl (12.0-16.0); MEAN CORPUSCULAR HEMOGLOBIN 31.1 PG (27.0-31.0); MEAN CORPUSCULAR HGB CONC 34.1 g/dL (33.0-36.5); MEAN CORPUSCULAR VOLUME 91.2 FL (78-98); MEAN PLATELET VOLUME 7.7 FL (7.4-10.4); MONOCYTES # (AUTO) 0.3 X10'3 (0-0.9); MONOCYTES % (AUTO) 4.9 % (2-12); NEUTROPHILS # (AUTO) 3.9 X10'3 (1.8-7.7); PLATELET COUNT 158 X10'3 (140-440); RED CELL DISTRIBUTION WIDTH 12.9 % (11.5-14.5); WHITE BLOOD COUNT 5.4 X10'3 (4.5-11.0)
[2022-10-27 08:58] LABS: APTT 32 SECONDS (22-32)
[2022-10-27 09:03] LABS: ALANINE AMINOTRANSFERASE 19 U/L (12-78); ALBUMIN 3.5 G/DL (3.4-5.0); ALBUMIN/GLOBULIN RATIO 1.2 (1.1-1.5); ALKALINE PHOSPHATASE 78 IU/L (46-116); ANION GAP 7 (8-16); ASPARTATE AMINO TRANSFERASE 18 U/L (10-37); BILIRUBIN,TOTAL 0.8 MG/DL (0.1-1.0); BLOOD UREA NITROGEN 19 MG/DL (7-18); BUN/CREATININE RATIO 20.7 (6.6-38.0); CALCIUM 9.2 MG/DL (8.5-10.1); CHLORIDE 107 MMOL/L (99-107); CREATININE 0.92 MG/DL (0.40-0.90); GLUCOSE 114 MG/DL (70-104); LIPASE 135 U/L (73-393); SODIUM 141 MMOL/L (135-145); TOTAL CARBON DIOXIDE 27.1 MMOL/L (24-32); TOTAL PROTEIN 6.5 G/DL (6.4-8.2); eGFR 59 ML/MIN
[2022-10-27 09:04] LABS: CLARITY,URINE CLOUDY (Clear); COLOR,URINE YELLOW (Yellow); GLUCOSE, URINE NEGATIVE (Neg); KETONES,URINE TRACE mg/dl (Neg); LEUKOCYTE ESTERASE ,URINE NEGATIVE (Neg); NITRITES, URINE NEGATIVE (Neg); OCCULT BLOOD,URINE NEGATIVE (Neg); PH,URINE 5.5 (4.8-8.0); PROTEIN,URINE NEGATIVE (Neg)
[2022-10-27 09:05] LABS: OCCULT BLOOD STOOL NEGATIVE (Neg)
[2022-10-27 09:10] LABS: UA COLLECTION TYPE CLN CATCH MIDSTREAM
[2022-10-27 09:14] LABS: BACTERIA,URINE 2+ /HPF (Neg); RBC,URINE 0-2 /HPF (0-2); SQUAMOUS EPITHELIAL CELL,UR MANY /LPF (FEW)
[2022-10-27] MEDS ORDERED: iohexol 300mg/ml 100ml inj. ONE (09:34)
[2022-10-27] MEDS ORDERED: SUCR1ORA15 PO (14:07)
[2022-10-27 14:50] VITALS: BP 140/91
== END 2022-10-27 14:51 | disposition home or self-care (01) ==
LOC: ER 07:22
DX: R10.13 Epigastric pain (principal); I10 Essential (primary) hypertension
CPT/HCPCS: 36415; 74177; 80053; 81001; 82272; 83690; 85025; 85610; 85730; 96360; 96361; 99285; J3490; J7030; Q9967

== ENCOUNTER 2023-02-16 06:54 | Day surgery (SDC) | payer MEDICARE, BC ==
[2023-02-15 11:53] LABS: BASOPHILS % (AUTO) 0.9 % (0-1); EOSINOPHILS # (AUTO) 0.2 X10'3 (0-0.9); EOSINOPHILS % (AUTO) 3.8 % (0-6); HEMOGLOBIN 12.6 g/dl (12.0-16.0); LYMPHOCYTES # (AUTO) 1.1 X10'3 (1.1-4.8); MEAN CORPUSCULAR HEMOGLOBIN 30.3 PG (27.0-31.0); MEAN CORPUSCULAR HGB CONC 33.1 g/dL (33.0-36.5); MEAN CORPUSCULAR VOLUME 91.6 FL (78-98); MEAN PLATELET VOLUME 7.6 FL (7.4-10.4); MONOCYTES # (AUTO) 0.3 X10'3 (0-0.9); MONOCYTES % (AUTO) 6.9 % (2-12); NEUTROPHILS # (AUTO) 3.3 X10'3 (1.8-7.7); NEUTROPHILS % (AUTO) 65.4 % (42-75); PLATELET COUNT 167 X10'3 (140-440); RED BLOOD COUNT 4.15 X10'6 (4.20-5.60); RED CELL DISTRIBUTION WIDTH 13.7 % (11.5-14.5)
[2023-02-15 12:07] LABS: ALBUMIN 3.4 G/DL (3.4-5.0); ANION GAP 7 (8-16); BLOOD UREA NITROGEN 17 MG/DL (7-18); BUN/CREATININE RATIO 19.5 (10.0-20.0); CALCIUM 8.8 MG/DL (8.5-10.1); CHLORIDE 108 MMOL/L (99-107); CREATININE 0.87 MG/DL (0.40-0.90); GLUCOSE 111 MG/DL (70-104); POTASSIUM 4.2 MMOL/L (3.5-5.1); SODIUM 141 MMOL/L (135-145); TOTAL CARBON DIOXIDE 26.4 MMOL/L (24-32); eGFR 63 ML/MIN
[2023-02-16] VITALS (11 sets, daily range): BP systolic 112–146; BP diastolic 65–92
[~2023-02-16] VITALS: Ht 167.6 cm; Wt 78.8 kg
[~2023-02-16 06:54] MED LIST changes: +SUCR1ORA15 PO
[2023-02-16] MEDS ORDERED: HYDR-3965 PO (07:28)
[2023-02-16] MEDS ORDERED: LOSA25TA41 PO (07:28)
[2023-02-16] MEDS ORDERED: AMIO200T62 PO (07:28)
[2023-02-16] MEDS ORDERED: normal saline 1000ml 1,000 ML IV SCH (07:45)
[2023-02-16] MEDS ORDERED: MIDAZolam 1mg/ml 10ml vial IV ONE (07:45)
[2023-02-16] MEDS ORDERED: diphenhydrAMINE 25mg capsule PO ONE (07:45)
[2023-02-16] MEDS ORDERED: amiodarone 150mg/dext, iso-os 100 ML IV ONE (07:45)
[2023-02-16] MEDS ORDERED: fentaNYL/PF 50MCG/1 ML 2ML syringe IV ONE (07:45)
[2023-02-16] MEDS ORDERED: atropine 0.1mg/ml 10ml syringe IV ONE (07:45)
[2023-02-16] MEDS ORDERED: LORazepam 0.5 MG tablet PO ONE (07:45)
== END 2023-02-16 10:15 | disposition home or self-care (01) ==
LOC: SSTAY O 06:54
PROVIDERS: ATTEND Internal Medicine Cardiovascular Disease
DX: I48.0 Paroxysmal atrial fibrillation (principal); E55.9 Vitamin D deficiency, unspecified; I25.10 Atherosclerotic heart disease of native coronary artery without angina pectoris; E11.9 Type 2 diabetes mellitus without complications; I42.8 Other cardiomyopathies; I47.1 Supraventricular tachycardia; E78.5 Hyperlipidemia, unspecified; G47.30 Sleep apnea, unspecified; E66.3 Overweight; Z68.28 Body mass index [BMI] 28.0-28.9, adult; I49.5 Sick sinus syndrome; Z79.899 Other long term (current) drug therapy; Z79.82 Long term (current) use of aspirin; Z79.01 Long term (current) use of anticoagulants; Z95.0 Presence of cardiac pacemaker; Z98.890 Other specified postprocedural states; Z90.49 Acquired absence of other specified parts of digestive tract; Z90.710 Acquired absence of both cervix and uterus; Z96.651 Presence of right artificial knee joint; Z88.8 Allergy status to other drugs, medicaments and biological substances; Z88.5 Allergy status to narcotic agent
CPT/HCPCS: 36415; 80048; 85025; 85610; 92960; 93005; J2250; J3010; J7030; A4620

== ENCOUNTER 2023-10-13 16:07 | Inpatient (IN) | payer MEDICARE, BC ==
[~2023-10-13] VITALS: Ht 167.6 cm; Wt 70.0 kg
[~2023-10-13 16:07] MED LIST changes: +AMIO200T72 PO; +HYDR-3965 PO; +LOSA25TA41 PO; -SUCR1ORA15 PO
[2023-10-13 19:15] LABS: BASOPHILS # (AUTO) 0.1 X10'3 (0-0.2); BASOPHILS % (AUTO) 0.6 % (0-1); EOSINOPHILS # (AUTO) 0.1 X10'3 (0-0.9); EOSINOPHILS % (AUTO) 1.3 % (0-6); HEMATOCRIT 40.8 % (35.0-45.0); HEMOGLOBIN 13.9 g/dl (12.0-16.0); LYMPHOCYTES # (AUTO) 1.8 X10'3 (1.1-4.8); LYMPHOCYTES % (AUTO) 20.4 % (21-51); MEAN CORPUSCULAR HEMOGLOBIN 31.1 PG (27.0-31.0); MEAN CORPUSCULAR VOLUME 91.5 FL (78-98); MEAN PLATELET VOLUME 6.9 FL (7.4-10.4); MONOCYTES # (AUTO) 0.6 X10'3 (0-0.9); MONOCYTES % (AUTO) 6.4 % (2-12); NEUTROPHILS # (AUTO) 6.4 X10'3 (1.8-7.7); NEUTROPHILS % (AUTO) 71.3 % (42-75); PLATELET COUNT 182 X10'3 (140-440); RED BLOOD COUNT 4.46 X10'6 (4.20-5.60); RED CELL DISTRIBUTION WIDTH 13.3 % (11.5-14.5)
[2023-10-13 19:31] LABS: ALANINE AMINOTRANSFERASE 17 U/L (12-78); ALBUMIN 3.8 G/DL (3.4-5.0); ALBUMIN/GLOBULIN RATIO 1.1 (1.1-1.5); ALKALINE PHOSPHATASE 65 IU/L (46-116); ANION GAP 9 (8-16); ASPARTATE AMINO TRANSFERASE 22 U/L (10-37); BILIRUBIN,TOTAL 0.7 MG/DL (0.1-1.0); BLOOD UREA NITROGEN 16 MG/DL (7-18); BUN/CREATININE RATIO 17.8 (10.0-20.0); CALCIUM 10.2 MG/DL (8.5-10.1); CHLORIDE 104 MMOL/L (99-107); GLUCOSE 100 MG/DL (70-104); LIPASE 35 U/L (16-77); POTASSIUM 3.9 MMOL/L (3.5-5.1); SODIUM 141 MMOL/L (135-145); TOTAL CARBON DIOXIDE 27.6 MMOL/L (24-32); TOTAL PROTEIN 7.3 G/DL (6.4-8.2); eCRCL 49 ML/MIN; eGFR 61 ML/MIN
[2023-10-13] MEDS ORDERED: iohexol 300mg/ml 100ml inj. ONE (19:56)
[2023-10-13 21:58] LABS: BILIRUBIN,URINE MODERATE (Neg); CLARITY,URINE CLOUDY (Clear); COLOR,URINE YELLOW (Yellow); GLUCOSE, URINE NEGATIVE (Neg); KETONES,URINE TRACE mg/dl (Neg); LEUKOCYTE ESTERASE ,URINE NEGATIVE (Neg); NITRITES, URINE NEGATIVE (Neg); OCCULT BLOOD,URINE NEGATIVE (Neg); PH,URINE 5.5 (4.8-8.0); PROTEIN,URINE NEGATIVE (Neg)
[2023-10-13 22:03] LABS: MUCUS STRANDS MANY /LPF (Neg); SQUAMOUS EPITHELIAL CELL,UR MANY /LPF (FEW); UA COLLECTION TYPE CLN CATCH MIDSTREAM
[2023-10-13 22:04] LABS: BACTERIA,URINE FEW /HPF (Neg); CAL OXALATE CRYSTALS 3+ /HPF (NEGATIVE); RBC,URINE 0-2 /HPF (0-2); WBC,URINE 0-4 /HPF (0-4)
[2023-10-13] MEDS ORDERED: pantoprazole 40 MG vial IV ONE (22:30)
[2023-10-13] MEDS ORDERED: ondansetron/PF 4mg/2ml inj IV ONE (22:30)
[2023-10-13] MEDS ORDERED: famotidine/PF 10 mg/ml inj IV ONE (22:30)
[2023-10-13] MEDS ORDERED: normal saline 1000ml 1,000 ML IV ONE (22:30)
[2023-10-14] MEDS ORDERED: piperacillin/tazo 3.375gm/50ml 50 ML IV ONE (00:15)
[2023-10-14] MEDS ORDERED: ketorolac trometh. 30mg/ml inj. IV ONE (00:20)
[2023-10-14] MEDS ORDERED: acetaminophen 325mg tablet PO ONE (00:20)
[2023-10-14] MEDS ORDERED: acetaminophen 325mg tablet PO PRN ×2 (03:15)
[2023-10-14] MEDS ORDERED: diphenhydrAMINE 25mg capsule PO PRN (03:15)
[2023-10-14] MEDS ORDERED: bisacodyl 10mg suppository rectal RC PRN (03:15)
[2023-10-14] MEDS ORDERED: ondansetron 4mg rapidly disintigrating tab PO PRN (03:15)
[2023-10-14] MEDS ORDERED: ondansetron/PF 4mg/2ml inj IV PRN (03:15)
[2023-10-14] MEDS ORDERED: acetaminophen 650mg rectal suppository RC PRN (03:15)
[2023-10-14] MEDS ORDERED: magnesium hydroxide 30ml (MOM) UD suspension PO PRN (03:15)
[2023-10-14] MEDS ORDERED: diphenhydrAMINE 50 mg/ml inj IV PRN (03:15)
[2023-10-14] MEDS ORDERED: mag hydrox/Alum hydrox/simeth 30ml oral suspension PO PRN (03:15)
[2023-10-14] MEDS: dextrose 5%-1/2 normal saline 1,000 ML IV SCH ×3 (04:11→23:44)
[2023-10-14] MEDS: docusate sod 100mg capsule PO SCH ×2 (08:00→19:10)
[2023-10-14 08:11] LABS: APTT 30 SECONDS (22-32); PROTHROMBIN TIME 10.6 SECONDS (9.0-12.0)
[2023-10-14 08:30] LABS: MAGNESIUM 1.9 MG/DL (1.5-2.4); PHOSPHORUS 4.6 MG/DL (2.3-4.5)
[2023-10-14] MEDS: piperacillin/tazo 4.5gm/100ml 100 ML IV SCH ×2 (08:52→16:56)
[2023-10-14] MEDS: pantoprazole 40mg Tablet.DR PO SCH (08:52)
[2023-10-14] MEDS: apixaban 5mg tablet PO SCH (19:10)
[2023-10-14] MEDS ORDERED: non-formulary drug (Omeprazole 1 CAP) PO SCH (20:00)
[2023-10-14] MEDS ORDERED: temazepam 15mg capsule PO PRN (21:00)
[2023-10-14] MEDS ORDERED: ISOS30TA84 PO (21:26)
[2023-10-15] MEDS: piperacillin/tazo 4.5gm/100ml 100 ML IV SCH ×2 (00:27→08:00)
[2023-10-15 05:34] VITALS: TEMP 98
[2023-10-15 08:15] LABS: EOSINOPHILS # (AUTO) 0.2 X10'3 (0-0.9); EOSINOPHILS % (AUTO) 4.1 % (0-6); HEMATOCRIT 39.5 % (35.0-45.0); HEMOGLOBIN 13.2 g/dl (12.0-16.0); LYMPHOCYTES % (AUTO) 20.2 % (21-51); MEAN CORPUSCULAR HEMOGLOBIN 31.1 PG (27.0-31.0); MEAN CORPUSCULAR HGB CONC 33.5 g/dL (33.0-36.5); MEAN CORPUSCULAR VOLUME 92.9 FL (78-98); MEAN PLATELET VOLUME 7.1 FL (7.4-10.4); MONOCYTES # (AUTO) 0.4 X10'3 (0-0.9); MONOCYTES % (AUTO) 7.7 % (2-12); NEUTROPHILS # (AUTO) 3.2 X10'3 (1.8-7.7); PLATELET COUNT 148 X10'3 (140-440); RED BLOOD COUNT 4.25 X10'6 (4.20-5.60); RED CELL DISTRIBUTION WIDTH 13.5 % (11.5-14.5); WHITE BLOOD COUNT 4.8 X10'3 (4.5-11.0)
[2023-10-15 08:36] LABS: ALANINE AMINOTRANSFERASE 12 U/L (12-78); ALBUMIN 2.9 G/DL (3.4-5.0); ALBUMIN/GLOBULIN RATIO 0.8 (1.1-1.5); ALKALINE PHOSPHATASE 56 IU/L (46-116); ANION GAP 7 (8-16); BILIRUBIN,TOTAL 0.9 MG/DL (0.1-1.0); BLOOD UREA NITROGEN 14 MG/DL (7-18); BUN/CREATININE RATIO 12.3 (10.0-20.0); CALCIUM 8.7 MG/DL (8.5-10.1); CHLORIDE 105 MMOL/L (99-107); CREATININE 1.14 MG/DL (0.40-0.90); GLUCOSE 87 MG/DL (70-104); SODIUM 141 MMOL/L (135-145); TOTAL CARBON DIOXIDE 29.2 MMOL/L (24-32); TOTAL PROTEIN 6.6 G/DL (6.4-8.2); eCRCL 39 ML/MIN; eGFR 46 ML/MIN
[2023-10-15 08:47] LABS: ASPARTATE AMINO TRANSFERASE 29 U/L (10-37); POTASSIUM 4.5 MMOL/L (3.5-5.1)
[2023-10-15] MEDS ORDERED: AMOX-580 PO (09:47)
[2023-10-15] MEDS ORDERED: LACT10SO78 PO (09:47)
[2023-10-15] MEDS ORDERED: HYDR-3965 PO (09:47)
[2023-10-15] MEDS: dextrose 5%-1/2 normal saline 1,000 ML IV SCH (09:59)
[2023-10-15] MEDS: apixaban 5mg tablet PO SCH (09:59)
[2023-10-15] MEDS: pantoprazole 40mg Tablet.DR PO SCH (09:59)
[2023-10-15] MEDS: docusate sod 100mg capsule PO SCH (09:59)
[2023-10-15 10:05] VITALS: BP 133/76; PULSE 71; RESP 16; O2SAT 95
== END 2023-10-15 10:26 | disposition home or self-care (01) | DRG 392 ==
LOC: ER 16:10 → ED HOLD 10-14 03:16
PROVIDERS: ADMIT Family Medicine; ATTEND Family Medicine
DX: K57.32 Diverticulitis of large intestine without perforation or abscess without bleeding (principal); E86.0 Dehydration; I48.91 Unspecified atrial fibrillation; I50.9 Heart failure, unspecified; I11.0 Hypertensive heart disease with heart failure; G89.4 Chronic pain syndrome; M54.9 Dorsalgia, unspecified; R82.4 Acetonuria; E83.39 Other disorders of phosphorus metabolism; K58.1 Irritable bowel syndrome with constipation; M51.36 Other intervertebral disc degeneration, lumbar region; K21.9 Gastro-esophageal reflux disease without esophagitis; E78.5 Hyperlipidemia, unspecified; Z79.01 Long term (current) use of anticoagulants; Z86.73 Personal history of transient ischemic attack (TIA), and cerebral infarction without residual deficits; Z95.0 Presence of cardiac pacemaker; Z79.82 Long term (current) use of aspirin; Z79.899 Other long term (current) drug therapy; Z88.5 Allergy status to narcotic agent
CPT/HCPCS: 36415; 74177; 80053; 81001; 83690; 83735; 83880; 84100; 85025; 85610; 85730; 99285; C9113; G0378; J1885; J2405; J2543; J3490; J7030; Q9967

== ENCOUNTER 2023-12-09 16:39 | Emergency (ER) | payer MEDICARE, BC ==
[~2023-12-09] VITALS: Ht 167.6 cm; Wt 71.2 kg
[~2023-12-09 16:39] MED LIST changes: +AMOX-580 PO; -ATOR-2 PO; -CARV6.252 PO; +ISOS30TA84 PO; +LACT10SO78 PO; -POTA-206 PO
[2023-12-09 18:03] LABS: BASOPHILS % (AUTO) 0.7 % (0-1); EOSINOPHILS # (AUTO) 0.1 X10'3 (0-0.9); HEMATOCRIT 36.3 % (35.0-45.0); HEMOGLOBIN 12.3 g/dl (12.0-16.0); LYMPHOCYTES # (AUTO) 1.3 X10'3 (1.1-4.8); LYMPHOCYTES % (AUTO) 24.2 % (21-51); MEAN CORPUSCULAR HEMOGLOBIN 31.4 PG (27.0-31.0); MEAN CORPUSCULAR VOLUME 92.5 FL (78-98); MONOCYTES # (AUTO) 0.3 X10'3 (0-0.9); MONOCYTES % (AUTO) 6.3 % (2-12); NEUTROPHILS # (AUTO) 3.6 X10'3 (1.8-7.7); NEUTROPHILS % (AUTO) 66.8 % (42-75); PLATELET COUNT 193 X10'3 (140-440); RED BLOOD COUNT 3.93 X10'6 (4.20-5.60); WHITE BLOOD COUNT 5.4 X10'3 (4.5-11.0)
[2023-12-09 18:16] LABS: ALANINE AMINOTRANSFERASE 16 U/L (12-78); ALBUMIN 3.5 G/DL (3.4-5.0); ALBUMIN/GLOBULIN RATIO 1.1 (1.1-1.5); ALKALINE PHOSPHATASE 52 IU/L (46-116); ANION GAP 5 (8-16); ASPARTATE AMINO TRANSFERASE 17 U/L (10-37); BILIRUBIN,TOTAL 0.3 MG/DL (0.1-1.0); BLOOD UREA NITROGEN 16 MG/DL (7-18); BUN/CREATININE RATIO 14.3 (10.0-20.0); CALCIUM 8.8 MG/DL (8.5-10.1); CHLORIDE 107 MMOL/L (99-107); CREATININE 1.12 MG/DL (0.40-0.90); GLUCOSE 117 MG/DL (70-104); SODIUM 143 MMOL/L (135-145); TOTAL CARBON DIOXIDE 31.2 MMOL/L (24-32); TOTAL PROTEIN 6.7 G/DL (6.4-8.2); eCRCL 39 ML/MIN; eGFR 47 ML/MIN
[2023-12-09] MEDS: HYDROcodone/acetaminophen 10/325mg tab PO ONE ×2 (23:02→23:20)
[2023-12-09] MEDS: ondansetron/PF 4mg/2ml inj IV ONE (23:19)
[2023-12-09] MEDS: pantoprazole 40 MG vial IV ONE (23:20)
[2023-12-09] MEDS: magnesium citrate 296ml oral solution PO ONE (23:44)
[2023-12-09] MEDS: normal saline 1000ML IV soln IVB ONE (23:44)
[2023-12-09 23:48] LABS: BILIRUBIN,URINE NEGATIVE (Neg); CLARITY,URINE CLEAR (Clear); COLOR,URINE STRAW (Yellow); GLUCOSE, URINE NEGATIVE (Neg); KETONES,URINE NEGATIVE (Neg); LEUKOCYTE ESTERASE ,URINE NEGATIVE (Neg); NITRITES, URINE NEGATIVE (Neg); OCCULT BLOOD,URINE NEGATIVE (Neg); PROTEIN,URINE NEGATIVE (Neg); UROBILINOGEN,URINE 0.2 E.U/dL (0.2-1.0)
[2023-12-09 23:57] LABS: UA COLLECTION TYPE NON-SPECIFIED
[2023-12-10 00:10] LABS: LIPASE 47 U/L (16-77); MAGNESIUM 2.3 MG/DL (1.5-2.4)
[2023-12-10] MEDS ORDERED: BISA10SU64 RC (02:00)
[2023-12-10] MEDS ORDERED: MAGN400O6 PO (02:00)
[2023-12-10] MEDS ORDERED: ACET-3414 PO (02:00)
[2023-12-10 02:30] VITALS: BP 137/70; PULSE 70; RESP 16; TEMP 98.6; O2SAT 97
== END 2023-12-10 02:34 | disposition home or self-care (01) ==
LOC: ER 16:40
DX: K43.9 Ventral hernia without obstruction or gangrene (principal); K59.00 Constipation, unspecified; I11.0 Hypertensive heart disease with heart failure; K21.9 Gastro-esophageal reflux disease without esophagitis; G89.29 Other chronic pain; M54.9 Dorsalgia, unspecified; Z90.49 Acquired absence of other specified parts of digestive tract; Z98.890 Other specified postprocedural states; Z88.5 Allergy status to narcotic agent; Z79.899 Other long term (current) drug therapy
CPT/HCPCS: 36415; 71045; 74176; 80053; 81003; 83690; 83735; 84484; 85025; 93005; 96361; 96374; 96375; 99285; C9113; J2405; J7030

== ENCOUNTER 2024-01-05 12:49 | Emergency (ER) | payer MEDICARE, BC ==
[~2024-01-05] VITALS: Ht 167.6 cm; Wt 69.7 kg
[~2024-01-05 12:49] MED LIST changes: +ACET-3414 PO; +BISA10SU64 RC; +MAGN400O6 PO
[2024-01-05 13:17] LABS: BASOPHILS % (AUTO) 0.8 % (0-1); EOSINOPHILS # (AUTO) 0.1 X10'3 (0-0.9); EOSINOPHILS % (AUTO) 1.9 % (0-6); HEMATOCRIT 37.7 % (35.0-45.0); HEMOGLOBIN 12.7 g/dl (12.0-16.0); LYMPHOCYTES # (AUTO) 0.9 X10'3 (1.1-4.8); LYMPHOCYTES % (AUTO) 15.5 % (21-51); MEAN CORPUSCULAR HEMOGLOBIN 31.1 PG (27.0-31.0); MEAN CORPUSCULAR HGB CONC 33.7 g/dL (33.0-36.5); MEAN CORPUSCULAR VOLUME 92.3 FL (78-98); MEAN PLATELET VOLUME 6.8 FL (7.4-10.4); MONOCYTES # (AUTO) 0.3 X10'3 (0-0.9); MONOCYTES % (AUTO) 5.1 % (2-12); NEUTROPHILS # (AUTO) 4.6 X10'3 (1.8-7.7); NEUTROPHILS % (AUTO) 76.7 % (42-75); PLATELET COUNT 198 X10'3 (140-440); RED BLOOD COUNT 4.09 X10'6 (4.20-5.60); RED CELL DISTRIBUTION WIDTH 13.8 % (11.5-14.5); WHITE BLOOD COUNT 6.1 X10'3 (4.5-11.0)
[2024-01-05 13:53] LABS: ALANINE AMINOTRANSFERASE 18 U/L (12-78); ALBUMIN 3.3 G/DL (3.4-5.0); ALKALINE PHOSPHATASE 55 IU/L (46-116); ANION GAP 7 (8-16); ASPARTATE AMINO TRANSFERASE 21 U/L (10-37); BILIRUBIN,TOTAL 0.7 MG/DL (0.1-1.0); BLOOD UREA NITROGEN 15 MG/DL (7-18); BUN/CREATININE RATIO 15.8 (10.0-20.0); CALCIUM 8.6 MG/DL (8.5-10.1); CHLORIDE 105 MMOL/L (99-107); CREATININE 0.95 MG/DL (0.40-0.90); GLUCOSE 124 MG/DL (70-104); MAGNESIUM 2.1 MG/DL (1.5-2.4); POTASSIUM 4.3 MMOL/L (3.5-5.1); SODIUM 139 MMOL/L (135-145); TOTAL CARBON DIOXIDE 27.2 MMOL/L (24-32); TOTAL PROTEIN 6.7 G/DL (6.4-8.2); eCRCL 46 ML/MIN; eGFR 57 ML/MIN
[2024-01-05 19:12] VITALS: TEMP 94.8
[2024-01-05] MEDS: LORazepam 0.5 MG tablet PO PRN (19:43)
[2024-01-05] MEDS: LORazepam 2 mg/ml vial IV ONE (19:43)
[2024-01-05 20:12] VITALS: BP 136/78; PULSE 81; RESP 16; O2SAT 98
== END 2024-01-05 20:13 | disposition home or self-care (01) ==
LOC: ER 12:49
DX: R07.89 Other chest pain (principal); K21.9 Gastro-esophageal reflux disease without esophagitis; Z79.899 Other long term (current) drug therapy; Z79.1 Long term (current) use of non-steroidal anti-inflammatories (NSAID); Z79.82 Long term (current) use of aspirin; Z98.890 Other specified postprocedural states; Z90.49 Acquired absence of other specified parts of digestive tract; Z90.710 Acquired absence of both cervix and uterus
CPT/HCPCS: 36415; 70450; 71045; 80053; 83735; 84484; 85025; 93005; 99285

== ENCOUNTER → 2024-01-12 | Outpatient (CLI) | payer MEDICARE, BC | END | disposition home or self-care (01) | LOC: RT 12:29 | PROVIDERS: ATTEND Internal Medicine Cardiovascular Disease | DX: R06.02 Shortness of breath (principal); Z79.899 Other long term (current) drug therapy | CPT/HCPCS: 85018; 94010; 94727; 94729 ==

== ENCOUNTER 2024-02-03 11:30 | Emergency (ER) | payer MEDICARE, BC ==
[~2024-02-03] VITALS: Ht 162.6 cm; Wt 69.5 kg
[2024-02-03 11:55] LABS: BASOPHILS % (AUTO) 0.7 % (0-1); EOSINOPHILS # (AUTO) 0.1 X10'3 (0-0.9); HEMATOCRIT 41.5 % (35.0-45.0); LYMPHOCYTES # (AUTO) 1.1 X10'3 (1.1-4.8); LYMPHOCYTES % (AUTO) 15.4 % (21-51); MEAN CORPUSCULAR HEMOGLOBIN 31.2 PG (27.0-31.0); MEAN CORPUSCULAR HGB CONC 33.7 g/dL (33.0-36.5); MEAN CORPUSCULAR VOLUME 92.7 FL (78-98); MONOCYTES # (AUTO) 0.4 X10'3 (0-0.9); NEUTROPHILS # (AUTO) 5.6 X10'3 (1.8-7.7); NEUTROPHILS % (AUTO) 77.9 % (42-75); PLATELET COUNT 200 X10'3 (140-440); RED BLOOD COUNT 4.48 X10'6 (4.20-5.60); RED CELL DISTRIBUTION WIDTH 13.5 % (11.5-14.5); WHITE BLOOD COUNT 7.2 X10'3 (4.5-11.0)
[2024-02-03 12:17] LABS: BILIRUBIN,URINE NEGATIVE (Neg); CLARITY,URINE SLIGHTLY CLOUDY (Clear); COLOR,URINE YELLOW (Yellow); GLUCOSE, URINE NEGATIVE (Neg); KETONES,URINE NEGATIVE (Neg); LEUKOCYTE ESTERASE ,URINE NEGATIVE (Neg); NITRITES, URINE NEGATIVE (Neg); OCCULT BLOOD,URINE NEGATIVE (Neg); PROTEIN,URINE NEGATIVE (Neg); UROBILINOGEN,URINE 0.2 E.U/dL (0.2-1.0)
[2024-02-03 12:25] LABS: SQUAMOUS EPITHELIAL CELL,UR FEW /LPF (FEW); UA COLLECTION TYPE NON-SPECIFIED
[2024-02-03 12:26] LABS: BACTERIA,URINE 1+ /HPF (Neg); MUCUS STRANDS FEW /LPF (Neg); RBC,URINE 0-2 /HPF (0-2); WBC,URINE 0-4 /HPF (0-4)
[2024-02-03 12:27] LABS: YEAST FEW /HPF (NEGATIVE)
[2024-02-03 12:44] LABS: ALANINE AMINOTRANSFERASE 15 U/L (12-78); ALBUMIN 3.8 G/DL (3.4-5.0); ALKALINE PHOSPHATASE 59 IU/L (46-116); ANION GAP 8 (8-16); ASPARTATE AMINO TRANSFERASE 14 U/L (10-37); BILIRUBIN,TOTAL 0.9 MG/DL (0.1-1.0); BLOOD UREA NITROGEN 18 MG/DL (7-18); CALCIUM 9.3 MG/DL (8.5-10.1); CHLORIDE 103 MMOL/L (99-107); CREATININE 1.06 MG/DL (0.40-0.90); GLUCOSE 126 MG/DL (70-104); POTASSIUM 4.6 MMOL/L (3.5-5.1); SODIUM 140 MMOL/L (135-145); TOTAL CARBON DIOXIDE 29.5 MMOL/L (24-32); TOTAL PROTEIN 7.5 G/DL (6.4-8.2); eCRCL 38 ML/MIN; eGFR 50 ML/MIN
[2024-02-03 12:51] LABS: PRO BRAIN NATRIURETIC PEPTIDE 345 PG/ML (0-450)
[2024-02-03] MEDS: normal saline 1000ml 1,000 ML IV ONE (14:04)
[2024-02-03 15:32] VITALS: BP 126/80; PULSE 69; RESP 16; TEMP 98.2; O2SAT 98
== END 2024-02-03 15:34 | disposition home or self-care (01) ==
LOC: ER 11:30
DX: E86.0 Dehydration (principal); R10.9 Unspecified abdominal pain; I48.91 Unspecified atrial fibrillation; I10 Essential (primary) hypertension; K21.9 Gastro-esophageal reflux disease without esophagitis; G89.29 Other chronic pain; Z90.49 Acquired absence of other specified parts of digestive tract; Z90.710 Acquired absence of both cervix and uterus; Z95.0 Presence of cardiac pacemaker; Z88.8 Allergy status to other drugs, medicaments and biological substances
CPT/HCPCS: 36415; 70450; 71045; 71250; 74176; 80053; 81001; 83880; 84484; 85025; 93005; 99285; J7030

== ENCOUNTER 2025-03-10 13:20 | Emergency (ER) | payer BC, MEDICARE ==
[~2025-03-10] VITALS: Ht 167.6 cm; Wt 100.0 kg
[~2025-03-10 13:20] MED LIST changes: -AMIO200T72 PO; -AMOX-580 PO; -ASPI81TA52 PO; +ATOR-2 PO; -BISA10SU64 RC; -FURO40TA4 PO; -HYDR-3965 PO; +HYDR-3973 PO; -ISOS30TA84 PO; -LACT10SO78 PO; -LINA290C PO; -MAGN400O6 PO
--- NOTE | 2025-03-10 13:43 | Physician Documentation ---
History of Present Illness ~ Chief Complaint: Heat Related Stated Complaint: HEAT EXHAUSTION Time Seen by MD: 13:40 OK to notify your PCP?: Yes Primary Medical Doctor: SUKH MARKS Source: patient, RN/, RN notes reviewed, old records Mode of Arrival: POV Exam Limitations: no limitations HPI 79 year old female seen in bed 08 presents to the emergency department via EMS for complaints of heat exhaustion. She states that she was walking around the health fair at the [facility] when she felt lightheaded and began to shake. She states that this happens occasionally. She states she had a bit of chocolate mousse, grapes, and some crackers for breakfast this morning. Of note she complains of chronic constipation following her bowel surgery from four months ago and she states that she needs to get a hernia repair done. Patient denies any other associated symptoms at this time. Patient denies any other alleviating or exacerbating factors. Medication Reconciliation Allergies: Coded Allergies: No Known Drug Allergies (Verified Allergy, Unknown, 09/07/24) morphine (Verified Adverse Reaction, Unknown, SHAKES AND SEE THINGS, ) Scheduled Apixaban (Eliquis), 5 MG PO BID, (Reported) Atorvastatin Calcium (Atorvastatin Calcium), 1 TAB PO DAILY, (Reported) Losartan Potassium (Losartan Potassium), 1 TAB PO DAILY, (Reported) Omeprazole (Omeprazole), 1 CAP PO BID, (Reported) Scheduled PRN Acetaminophen/Diphenhydramine (Tylenol Pm Ex-Strength Caplet), 1 TAB PO PRN PRN for pain, (Reported) Hydrocodone Bit/Acetaminophen (Hydrocodone-Apap 10-325 Tablet), 1 TAB PO PRN PRN for pain, (Reported) Past Medical History Past Medical History: Arrhythmia, Atrial Fibrillation, Hypertension, GERD, Hernia, Chronic Back Pain Past Surgical History: abdominal surgery, appendectomy, cholecystectomy, hysterectomy, pacemaker Other Past Surgical History: hernia repair Alcohol Use: None Drug Use: none Lives In: Home Review of Systems All Other Systems at this time: Reviewed and Negative ROS As stated above in the HPI, otherwise all systems are reviewed and negative. Physical Exam Vital Signs: RN Vital Signs have been reviewed: Yes, Temperature: 98.1, Source: Temporal, Heart Rate: 80, Respiratory Rate: 14, BP: 114/70, Pulse Oximetry: 99, Weight: 100.000 Pulse Oximetry Reflects: adequate oxygenation Physical Exam General: The patient is well developed, well nourished, nontoxic appearing and is in no acute distress. Skin: [place], warm and dry with no rashes. HEENT: Head was normocephalic and atraumatic. Eyes - pupils equal, round, reactive to light and accommodation. Extraocular movements were intact. Conjunctivae were nonicteric. Ears - bilateral tympanic membranes were normal. The mouth and oropharynx were clear with moist mucous membranes. There were no pharyngeal exudates or erythema. Neck: Supple and nontender. There was no jugular venous distention, lymphadenopathy, thyromegaly or masses. Chest: Clear to auscultation bilaterally without wheezes, rales or rhonchi. No accessory muscle use. No dullness to percussion. Heart: Rate regular and rhythmic. S1, S2. No murmurs. Palpation of the chest wall was normal. No rubs or thrills. Abdomen: Slight distension to the abdomen with some surgical scarring. Positive bowel sounds. No guarding or rebound. No hepatosplenomegaly or palpable masses. Extremities: No cyanosis, clubbing or edema. The patient moves all extremities. Pulses were equal and symmetric. Neurologic: Cranial nerves II-XII were intact. Sensation was intact to light touch throughout. Motor strength was 5/5 in all four extremities. Deep tendon reflexes were intact in both upper and lower extremities. Psychologic: The patient was oriented to person, place and time. The patient demonstrated appropriate judgement and insight. Progress Results/Orders Reviewed/noted all lab results: Yes Results/Orders Orders - WESTON WYNNE MD Chest,Single View (03/10/25 13:39) Monitor (03/10/25 13:39) Oxygen (03/10/25 13:39) Electrocardiogram (03/10/25 13:39) Ct Abdomen Pelvis (03/10/25 15:03) Completed Orders - WESTON WYNNE MD MG (03/10/25 13:39) Pt Inr (03/10/25 13:39) PTT (03/10/25 13:39) PBNP (03/10/25 13:39) Chest,Single View (03/10/25 13:39) Normal Saline 1000ml (Sodium Chloride 10 (03/10/25 13:40) Normal Saline 1000ml (Sodium Chloride 10 (03/10/25 13:40) Electrocardiogram (03/10/25 13:39) Hs Troponin I W Calculations (03/10/25 13:39) CMP (03/10/25 13:39) Myoglobin (03/10/25 13:39) CK (03/10/25 13:39) Ct Abdomen Pelvis (03/10/25 15:03) Vital Signs 03/10/25 03/10/25 03/10/25 03/10/25 13:26 14:02 15:08 19:03 Temp 98.1 97.7 97.3 Pulse 80 80 80 Resp 14 16 16 B/P (MAP) 114/70 135/94 (108) 131/94 Pulse Ox 99 97 99 O2 Flow Rate 0 Laboratory Tests Test 03/10/25 14:10 03/10/25 14:25 03/10/25 15:11 CBC Comment Prothrombin Time 9.9 INR International Normalized Ratio 1.0 Activated Partial Thromboplast Time 27 Coagulation Comments Sodium Level 143 Potassium Level 4.5 Chloride Level 109 H Carbon Dioxide Level 29.7 Anion Gap 4 L Blood Urea Nitrogen 25 H Creatinine 1.01 H Estimated GFR/1.73 m2 53 BUN/Creatinine Ratio 24.8 H Glucose Level 94 Calcium Level 8.7 Magnesium Level 2.2 Total Bilirubin 0.4 Aspartate Amino Transf (AST/SGOT) 20 Alanine Aminotransferase (ALT/SGPT) 17 Alkaline Phosphatase 63 Total Creatine Kinase 27 Myoglobin 32.0 Troponin I High Sensitivity 6 Pro-B-Type Natriuretic Peptide 1691 H Total Protein 6.5 Albumin 3.3 L Globulin 3.2 Albumin/Globulin Ratio 1.0 L Chemistry Comments White Blood Count 5.9 Red Blood Count 4.58 Hemoglobin 13.8 Hematocrit 40.7 Mean Corpuscular Volume 88.8 Mean Corpuscular Hemoglobin 30.2 Mean Corpuscular Hemoglobin Concent 34.0 Red Cell Distribution Width 13.8 Platelet Count 151 Mean Platelet Volume 7.5 Neutrophils (%) (Auto) 66.3 Lymphocytes (%) (Auto) 24.7 Monocytes (%) (Auto) 6.4 Eosinophils (%) (Auto) 1.8 Basophils (%) (Auto) 0.8 Neutrophils # (Auto) 3.9 Lymphocytes # (Auto) 1.4 Monocytes # (Auto) 0.4 Eosinophils # (Auto) 0.1 Basophils # (Auto) 0.0 Re-Evaluation Re-Evaluation : Re-Evaluation: Improved Progress Patient was seen and examined. Patient was given reassurance. The patient may have had a syncopal episode it is unclear. She was exposed to the he became dizzy. She is now here for evaluation and care. She states she is feeling a bit better since she has been in the air conditioner but still does not feel best. She is complaining of some abdominal pain as well as diffuse throughout her abdomen. Patient was given fluids. Laboratory work was obtained. CBC is within normal limits coagulation within normal limits chemistry shows some mild dehydration with a BUN of 25 creatinine 1.01. LFTs within normal limits. CT scan the abdomen pelvis was obtained because the patient continued to have abdominal pain and of advanced age and with some concern for other possible etiologies for her symptoms. Chest x-ray was negative for any infiltrates or effusions. Patient received fluid boluses and ultimately was discharged home after a negative workup. No signs of arrhythmias, infection. Continuous director of field coordination interpretation shows normal sinus rhythm heart rate 80s, no ectopy, normal, my interpretation. Pulse oximetry monitor interpretation shows normal oxygenation 98% room air, normal, my interpretation. 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 Weston Wynne Measurements Intervals [place] Rate: 80 P: 0 [place]: 213 QRS: -70 QRSD: 125 T: 91 QT: 431 QTc: 498 Interpretive Statements Ventricular-paced rhythm No further analysis attempted due to paced rhythm Electronically Signed On 03-10-2025 15:55:[address] Weston Wynne Please click the below link to view image of tracing. EKG Date and Time:03/10/25 1411 Electronically Signed by: WESTON WYNNE MD Date and Time: 03/10/25 1555 Chest X-Ray : Additional Comments EXAM: DI CHEST,SINGLE VIEW TECHNIQUE: Single frontal chest radiograph CLINICAL HISTORY: CHEST PAIN COMPARISON: DI CHEST,SINGLE VIEW on DOS: 02/03/24, DI CHEST,SINGLE VIEW on DOS: 01/05/24, DI CHEST,SINGLE VIEW on DOS: 12/09/23 Findings/Impression: Frontal chest radiograph demonstrates no acute osseous or superficial soft tissue abnormalities. Left chest wall dual-chamber pacemaker. The trachea is midline. The cardiac silhouette and mediastinum are within normal limits. No pneumothorax, pleural effusions, or consolidations. Electronically Signed by:CARLEY COLON DO Date & Time: 03/10/[address] : Impression Exam: CT CT ABDOMEN PELVIS History: ABD PAIN, right flank pain Comparison Study: CT CT ABDOMEN PELVIS on DOS: 02/03/24, CT CT ABDOMEN PELVIS on DOS: 12/09/23, CT CT ABDOMEN PELVIS on DOS: 10/13/23 TECHNIQUE: Multidetector CT of the abdomen and pelvis was performed from lung bases to pubic symphysis. Imaging was performed without IV contrast. Axial, coronal, and sagittal multiplanar reformats were obtained from the axial data set by the technologist. RADIATION DOSE: DLP 961.55 mGy.cm; CTDI vol 22.67 mGy. Findings: Limited evaluation given noncontrast technique. Lungs: The lung bases are clear. Heart: Cardiomegaly Liver: Unremarkable. Gallbladder: Cholecystectomy. Spleen: Unremarkable Pancreas: Unremarkable Adrenals: Unremarkable Kidneys: Unremarkable. No nephroureterolithiasis. GI tract: Small hiatal hernia. Postsurgical changes of the stomach and r ectosigmoid colon. : Unremarkable. Vasculature: Mild aortoiliac atherosclerosis. Lymphadenopathy: Absent Peritoneum: No ascites Musculoskeletal: Moderate multilevel degenerative changes of the thoracolumbar spine Soft tissues: Small fat containing periumbilical hernia. Impression: 1. Limited evaluation given noncontrast technique. 2. No definite acute abdominopelvic abnormalities. 3. No nephroureterolithiasis. Electronically Signed by:CARLEY COLON DO Date & Time: 03/10/25 1636 Medical Decision Making Additional info obtained from: old records Differential Dx:Considerations: Include: Dehydration, Electrolyte imbalance, Encephalopathy, Heat cramps, Heat exhaustion, Heat stoke, Heat syncope, Heat tetany, Prickly heat, Renal failure, Sepsis, Other Departure Time of Disposition: 15:07 Disposition: 01 HOME / SELF CARE / HOMELESS Impression: Primary Impression: Heat exhaustion Qualified Codes: T67.5XXA - Heat exhaustion, unspecified, initial encounter Additional Impressions: Abdominal pain Qualified Codes: R10.84 - Generalized abdominal pain Dehydration Condition: Stable Discharge Instructions: Heat Exhaustion Referrals: NO PRIMARY CARE PROVIDER (PCP) Education Educated: Patient, Family Educated regarding: diagnosis, treatment, prognosis, need for follow up Signature Scribe Signature: Scribed for Weston Wynne MD by Annie Hernández . 03/10/25 15:07 Attestation: The note accurately reflects work and decisions made by me.Weston Wynne MD 03/10/25 13:43 WESTON WYNNE MD Mar 10, 2025 13:43 ANNIE AVERY Mar 10, 2025 15:07
--- NOTE | 2025-03-10 14:12 | ELECTROCARDIOGRAPH REPORT ---
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 Jb Soliz Measurements Intervals [place] Rate: 80 P: 0 [place]: 213 QRS: -70 QRSD: 125 T: 91 QT: 431 QTc: 498 Interpretive Statements Ventricular-paced rhythm No further analysis attempted due to paced rhythm Electronically Signed On 03-10-2025 15:55:[address] Jb Soliz Please click the below link to view image of tracing.
[2025-03-10 14:45] LABS: APTT 27 SECONDS (22-32); PROTHROMBIN TIME 9.9 SECONDS (9.0-12.0)
[2025-03-10 14:46] LABS: ALANINE AMINOTRANSFERASE 17 U/L (12-78); ALBUMIN 3.3 G/DL (3.4-5.0); ALKALINE PHOSPHATASE 63 IU/L (46-116); ANION GAP 4 (8-16); ASPARTATE AMINO TRANSFERASE 20 U/L (10-37); BILIRUBIN,TOTAL 0.4 MG/DL (0.1-1.0); BLOOD UREA NITROGEN 25 MG/DL (7-18); BUN/CREATININE RATIO 24.8 (10.0-20.0); CALCIUM 8.7 MG/DL (8.5-10.1); CHLORIDE 109 MMOL/L (99-107); CREATININE 1.01 MG/DL (0.40-0.90); GLUCOSE 94 MG/DL (70-104); POTASSIUM 4.5 MMOL/L (3.5-5.1); SODIUM 143 MMOL/L (135-145); TOTAL CARBON DIOXIDE 29.7 MMOL/L (24-32); TOTAL PROTEIN 6.5 G/DL (6.4-8.2); eCRCL 43 ML/MIN; eGFR 53 ML/MIN
--- NOTE | 2025-03-10 14:50 | RADIOLOGY REPORT ---
EXAM: DI CHEST,SINGLE VIEW TECHNIQUE: Single frontal chest radiograph CLINICAL HISTORY: CHEST PAIN COMPARISON: DI CHEST,SINGLE VIEW on DOS: 02/03/24, DI CHEST,SINGLE VIEW on DOS: 01/05/24, DI CHEST,SINGLE VIEW on DOS: 12/09/23 Findings/Impression: Frontal chest radiograph demonstrates no acute osseous or superficial soft tissue abnormalities. Left chest wall dual-chamber pacemaker. The trachea is midline. The cardiac silhouette and mediastinum are within normal limits. No pneumothorax, pleural effusions, or consolidations.
[2025-03-10] MEDS: normal saline 1000ML IV soln IVB ONE (14:55)
[2025-03-10] MEDS: normal saline 1000ml 1,000 ML IV ONE (14:55)
[2025-03-10 15:06] LABS: CREATINE KINASE 27 U/L (26-192); MAGNESIUM 2.2 MG/DL (1.5-2.4); PRO BRAIN NATRIURETIC PEPTIDE 1691 PG/ML (0-450)
[2025-03-10 15:34] LABS: BASOPHILS % (AUTO) 0.8 % (0-1); EOSINOPHILS # (AUTO) 0.1 X10'3 (0-0.9); EOSINOPHILS % (AUTO) 1.8 % (0-6); HEMATOCRIT 40.7 % (35.0-45.0); HEMOGLOBIN 13.8 g/dl (12.0-16.0); LYMPHOCYTES # (AUTO) 1.4 X10'3 (1.1-4.8); LYMPHOCYTES % (AUTO) 24.7 % (21-51); MEAN CORPUSCULAR HEMOGLOBIN 30.2 PG (27.0-31.0); MEAN CORPUSCULAR VOLUME 88.8 FL (78-98); MEAN PLATELET VOLUME 7.5 FL (7.4-10.4); MONOCYTES # (AUTO) 0.4 X10'3 (0-0.9); MONOCYTES % (AUTO) 6.4 % (2-12); NEUTROPHILS # (AUTO) 3.9 X10'3 (1.8-7.7); NEUTROPHILS % (AUTO) 66.3 % (42-75); PLATELET COUNT 151 X10'3 (140-440); RED BLOOD COUNT 4.58 X10'6 (4.20-5.60); RED CELL DISTRIBUTION WIDTH 13.8 % (11.5-14.5); WHITE BLOOD COUNT 5.9 X10'3 (4.5-11.0)
--- NOTE | 2025-03-10 16:38 | RADIOLOGY REPORT ---
Exam: CT CT ABDOMEN PELVIS History: ABD PAIN, right flank pain Comparison Study: CT CT ABDOMEN PELVIS on DOS: 02/03/24, CT CT ABDOMEN PELVIS on DOS: 12/09/23, CT CT ABD OMEN PELVIS on DOS: 10/13/23 TECHNIQUE: Multidetector CT of the abdomen and pelvis was performed from lung bases to pubic symphysi s. Imaging was performed without IV contrast. Axial, coronal, and sagittal multiplanar reformats were obtained from the axial data set by the technologist. RADIATION DOSE: DLP 961.55 mGy.cm; CTDI vol 22.67 mGy. Findings: Limited evaluation given noncontrast technique. Lungs: The lung bases are clear. Heart: Cardiomegaly Liver: Unremarkable. Gallbladder: Cholecystectomy. Spleen: Unremarkable Pancreas: Unremarkable Adrenals: Unremarkable Kidneys: Unremarkable. No nephroureterolithiasis. GI tract: Small hiatal hernia. Postsurgical changes of the stomach and rectosigmoid colon. : Unremarkable. Vasculature: Mild aortoiliac atherosclerosis. Lymphadenopathy: Absent Peritoneum: No ascites Musculoskeletal: Moderate multilevel degenerative changes of the thoracolumbar spine Soft tissues: Small fat containing periumbilical hernia. Impression: 1. Limited evaluation given noncontrast technique. 2. No definite acute abdominopelvic abnormalities. 3. No nephroureterolithiasis.
[2025-03-10 19:03] VITALS: BP 131/94; PULSE 80; RESP 16; TEMP 97.3; O2SAT 99
== END 2025-03-10 19:11 | disposition home or self-care (01) ==
LOC: ER 13:21
DX: T67.5XXA Heat exhaustion, unspecified, initial encounter (principal); E86.0 Dehydration; I10 Essential (primary) hypertension; K21.9 Gastro-esophageal reflux disease without esophagitis; I48.91 Unspecified atrial fibrillation; Z90.49 Acquired absence of other specified parts of digestive tract; Z90.710 Acquired absence of both cervix and uterus; Z95.0 Presence of cardiac pacemaker; Z98.890 Other specified postprocedural states; Z88.5 Allergy status to narcotic agent; Z79.899 Other long term (current) drug therapy; X58.XXXA Exposure to other specified factors, initial encounter; Y93.89 Activity, other specified; Y92.89 Other specified places as the place of occurrence of the external cause; Y99.8 Other external cause status
CPT/HCPCS: 36415; 71045; 74176; 80053; 82550; 83735; 83874; 83880; 84484; 85025; 85610; 85730; 93005; 96360; 96361; 99285; J7030; J7050

== ENCOUNTER 2025-09-05 07:42 | Day surgery (SDC) | payer MEDICARE, BC ==
[2025-09-04 11:27] LABS: MEAN PLATELET VOLUME 7.2 FL (7.4-10.4); RED CELL DISTRIBUTION WIDTH 13.4 % (11.5-14.5)
[2025-09-04 11:39] LABS: INR 1.1 INR
[2025-09-04 11:41] LABS: CREATININE 1.08 MG/DL (0.40-0.90); TOTAL CARBON DIOXIDE 30.7 MMOL/L (24-32); eGFR 49 ML/MIN
[2025-09-05] VITALS (8 sets, daily range): BP systolic 113–138; BP diastolic 70–95; PULSE 80–82; RESP 9–26; TEMP 98.4; O2SAT 92–99
[~2025-09-05] VITALS: Ht 165.1 cm; Wt 83.8 kg
[~2025-09-05 07:42] MED LIST changes: -ACET-3414 PO; -ATOR-2 PO; -HYDR-3973 PO; -LOSA25TA41 PO; +ONDA-243 PO; +PANT40TA54 PO
--- NOTE | 2025-09-05 08:22 | ELECTROCARDIOGRAPH REPORT ---
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 ISHAN Flores Measurements Intervals [place] Rate: 80 P: 0 [place]: 0 QRS: -73 QRSD: 126 T: 96 QT: 407 QTc: 470 Interpretive Statements Afib/flutter and ventricular-paced rhythm No further analysis attempted due to paced rhythm Electronically Signed On 09-05-2025 17:06:[address] ISHAN Flores Please click the below link to view image of tracing.
[2025-09-05] MEDS ORDERED: amiodarone 150mg/dext, iso-os 100 ML IV ONE (08:30)
[2025-09-05] MEDS ORDERED: atropine 0.1mg/ml 10ml syringe IV ONE (08:30)
[2025-09-05] MEDS ORDERED: fentaNYL/PF 50MCG/1 ML 2ML syringe IV ONE (08:30)
[2025-09-05] MEDS ORDERED: MIDAZolam 1mg/ml 10ml vial IV ONE (08:30)
[2025-09-05] MEDS: normal saline 1000ml 1,000 ML IV SCH (09:38)
[2025-09-05] MEDS: FLU VACC TS2025-26(6MOS UP)/PF (FLULAVAL) 45 MCG/0.5 ML SYRINGE IMVAC ONE (09:40)
[2025-09-05] MEDS ORDERED: fentaNYL/PF 50MCG/1 ML 2ML syringe ONE (11:15)
[2025-09-05] MEDS ORDERED: midazolam 1 mg/ML 2ml injection ONE ×2 (11:15→12:03)
[2025-09-05] MEDS ORDERED: atropine 0.1mg/ml 10ml syringe ONE (11:16)
[2025-09-05] MEDS ORDERED: APIX5TAB3 PO (12:50)
[2025-09-05] MEDS ORDERED: [UNRECOGNIZED DRUG - CODE] PO (12:50)
[2025-09-05] MEDS ORDERED: AMIO200T76 PO (12:50)
[2025-09-05] MEDS ORDERED: ROSU40TA89 PO (12:50)
--- NOTE | 2025-09-05 12:51 | ELECTROCARDIOGRAPH REPORT ---
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 ISHAN Flores Measurements Intervals [place] Rate: 80 P: 77 [place]: 258 QRS: -72 QRSD: 131 T: 93 QT: 416 QTc: 480 Interpretive Statements A-V dual-paced rhythm with some inhibition No further analysis attempted due to paced rhythm Electronically Signed On 09-05-2025 17:07:[address] ISHAN Flores Please click the below link to view image of tracing.
--- NOTE | 2025-09-05 13:10 | CARDIOLOGY REPORT ---
DATE OF SERVICE: 09/05/2025 DICTATING PHYSICIAN: ISHAN Flores MD CARDIAC ELECTRICAL CARDIOVERSION REPORT DATE OF PROCEDURE: 09/05/2025 IDENTIFICATION: A 80-year-old female with diabetes, hypertension, hyperlipidemia, CAD, sick sinus syndrome, status post PPM, in persistent atrial fibrillation. The patient had pacemaker implantation on 09/01/2018. Last interrogation/pacemaker checkup on 07/28 showed that the patient was on an A-fib. After discussing risks, benefits, alternative options, the patient prefers to proceed with rhythm control because of her symptoms. Risks, benefits, alternative options discussed. The patient is on carvedilol, Eliquis. The patient was started on amiodarone 200 mg p.o. b.i.d. on 07/23/2025. DESCRIPTION OF PROCEDURE: Anterior and posterior pads were used. Using biphasic electrical energy 200 joules, converted to AV paced rhythm. Pacing rate increased to 80 per minute. IMPRESSION: A 80-year-old female with persistent atrial fibrillation converted to atrioventricular paced rhythm. Pacing rate increased to 80 per minute, it can be lowered to 70 per minute in a month and the patient, continue the same. Carvedilol 3.125 mg p.o. t.i.d. and Eliquis 2.5 mg p.o. b.i.d. ISHAN Flores MD TID: [id number] RECEIPT: [id number] ORACIO/MONTY cc: Morro Navas MD MTDD
== END 2025-09-05 14:00 | disposition home or self-care (01) ==
LOC: SSTAY O 07:42
PROVIDERS: ATTEND Internal Medicine Cardiovascular Disease
DX: I48.0 Paroxysmal atrial fibrillation (principal); I48.92 Unspecified atrial flutter; I25.10 Atherosclerotic heart disease of native coronary artery without angina pectoris; I11.9 Hypertensive heart disease without heart failure; E11.9 Type 2 diabetes mellitus without complications; E78.5 Hyperlipidemia, unspecified; G47.30 Sleep apnea, unspecified; Z90.49 Acquired absence of other specified parts of digestive tract; Z90.710 Acquired absence of both cervix and uterus; Z95.0 Presence of cardiac pacemaker; Z96.651 Presence of right artificial knee joint; Z79.01 Long term (current) use of anticoagulants; Z79.899 Other long term (current) drug therapy; Z85.89 Personal history of malignant neoplasm of other organs and systems
CPT/HCPCS: 36415; 80048; 85025; 85610; 92960; 93005; 99152; J2250; J3010; J7030; J0461

== ENCOUNTER 2025-09-29 13:41 | Emergency (ER) | payer MEDICARE, BC ==
[~2025-09-29] VITALS: Ht 167.6 cm; Wt 79.7 kg
[~2025-09-29 13:41] MED LIST changes: +AMIO200T76 PO; -ONDA-243 PO; -PANT40TA54 PO; +ROSU40TA89 PO; +[UNRECOGNIZED DRUG - CODE] PO
[2025-09-29 13:54] VITALS: TEMP 97.4
--- NOTE | 2025-09-29 14:04 | ELECTROCARDIOGRAPH REPORT ---
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 Weston Wynne Measurements Intervals [place] Rate: 80 P: -30 [place]: 126 QRS: -75 QRSD: 127 T: 86 QT: 402 QTc: 464 Interpretive Statements Atrial-ventricular dual-paced rhythm No further analysis attempted due to paced rhythm Electronically Signed On 10-01-2025 11:17:[address] Weston Wynne Please click the below link to view image of tracing.
[2025-09-29 14:20] LABS: MEAN PLATELET VOLUME 7.5 FL (7.4-10.4); RED CELL DISTRIBUTION WIDTH 13.2 % (11.5-14.5)
[2025-09-29 14:47] LABS: CREATININE 1.09 MG/DL (0.40-0.90); PRO BRAIN NATRIURETIC PEPTIDE 292 PG/ML (0-450); TOTAL CARBON DIOXIDE 27.8 MMOL/L (24-32); eCRCL 39 ML/MIN; eGFR 48 ML/MIN
--- NOTE | 2025-09-29 14:59 | RADIOLOGY REPORT ---
CHEST RADIOGRAPH INDICATION: CP TECHNIQUE: Single frontal view of the chest was obtained COMPARISON: DI CHEST,SINGLE VIEW on DOS: 06/28/25, DI CHEST,SINGLE VIEW on DOS: 03/10/25, DI CHEST,SINGLE VIEW on DOS: 02/03/24, DI CHEST,SINGLE VIEW on DOS: 01/05/24, DI CHEST,SINGLE VIEW on DOS: 12/09/23 FINDINGS: Lines and Tubes: Pacemaker/ AICD in the left chest with 2 cardiac leads. Lungs: Clear Pleura: No effusion. No pneumothorax. Cardiomediastinal contours: Unremarkable Bones: Unremarkable IMPRESSION: 1. No radiographic evidence of acute cardiopulmonary abnormality.
--- NOTE | 2025-09-29 16:30 | Physician Documentation ---
History of Present Illness ~ Chief Complaint: Extremity Swelling Stated Complaint: DIZZINESS Time Seen by MD: 16:18 Primary Medical Doctor: SUKH MARKS Source: patient Mode of Arrival: POV Exam Limitations: no limitations HPI 80-year-old female was concerned about lower extremity edema for approximately 1 week. Patient does have history of congestive heart failure and sees a auto painter helper routinely. Patient is supposed to take Lasix 40 mg once a day but has not taken it for the past 2 weeks due to the holidays and shopping and the fear that the stores that she goes into will not have a public restroom if she has to go to the bathroom. Patient denies any chest pain or shortness of breath. Patient does also have history of vascular insufficiency to her lower extremities does not wear compression socks but does elevate her feet when she is in her recliner or resting. Medication Reconciliation Allergies: Coded Allergies: morphine (Verified Adverse Reaction, Unknown, SHAKES AND SEE THINGS, 09/29/25) Scheduled Amiodarone Hcl (Cordarone), 1 TAB PO BID, (Reported) Apixaban (Eliquis), 1 TAB PO BID, (Reported) Carvedilol (Carvedilol), 0.5 TAB PO BID, (Reported) Omeprazole (Omeprazole), 1 CAP PO BID, (Reported) Rosuvastatin Calcium (Rosuvastatin Calcium), 1 TAB PO DAILY, (Reported) Past Medical History Past Medical History: Arrhythmia, Atrial Fibrillation, Hypertension, Vascular Disease, GERD, Hernia, Chronic Back Pain Past Surgical History: abdominal surgery, appendectomy, cholecystectomy, hysterectomy, pacemaker Other Past Surgical History: hernia repair Patient History: Patient reports no known family medical history. Alcohol Use: None Drug Use: none Lives with: Spouse Lives In: Home Occupation: retired Review of Systems All Other Systems at this time: Reviewed and Negative Cardiovascular: Reports: see HPI Physical Exam Vital Signs: RN Vital Signs have been reviewed: Yes, Temperature: 97.4, Source: Temporal, Heart Rate: 80, Respiratory Rate: 16, BP: 120/74, Pulse Oximetry: 98, Weight: 79.700 Oxygen Flow Rate: 0 General Appearance General: Alert, no apparent distress. HEENT: PERRL, EOMI, no injection, moist mucous membranes. Neck: Full range of motion. Respiratory: Lungs clear, no respiratory distress. Clear to auscultation bilaterally no wheezes rales or rhonchi Chest: No accessory muscle use. Cardiovascular: Regular rate and rhythm, no murmurs. Plus one pitting edema to lower extremities some nonpitting edema localized to bilateral ankles feet without edema +1 pedal pulse multiple superficial varicosities to lower extremities. Extremities: Normal range of motion, no deformity. Neurologic: Oriented x4. Psychiatric: Normal mood and affect. Skin: Normal color, warm and dry. No edema, no ecchymosis. Progress Results/Orders Results/Orders Vital Signs 09/29/25 13:54 Temp 97.4 Pulse 80 Resp 16 B/P (MAP) 120/74 Pulse Ox 98 O2 Flow Rate 0 Laboratory Tests Test 09/29/25 14:03 White Blood Count 5.7 Red Blood Count 5.10 Hemoglobin 15.5 Hematocrit 46.2 H Mean Corpuscular Volume 90.6 Mean Corpuscular Hemoglobin 30.3 Mean Corpuscular Hemoglobin Concent 33.5 Red Cell Distribution Width 13.2 Platelet Count 199 Mean Platelet Volume 7.5 Neutrophils (%) (Auto) 66.8 Lymphocytes (%) (Auto) 22.0 Monocytes (%) (Auto) 7.8 Eosinophils (%) (Auto) 2.7 Basophils (%) (Auto) 0.7 Neutrophils # (Auto) 3.8 Lymphocytes # (Auto) 1.3 Monocytes # (Auto) 0.4 Eosinophils # (Auto) 0.2 Basophils # (Auto) 0.0 CBC Comment Sodium Level 140 Potassium Level 4.3 Chloride Level 105 Carbon Dioxide Level 27.8 Anion Gap 7 L Blood Urea Nitrogen 18 Creatinine 1.09 H Estimated GFR/1.73 m2 48 BUN/Creatinine Ratio 16.5 Glucose Level 111 H Calcium Level 9.7 Troponin I High Sensitivity 5 Pro-B-Type Natriuretic Peptide 292 Albumin 3.9 Chemistry Comments EKG/XRAY/CT/US/VASC/MRI EKG : Additional Comment EKG 1401: Av paced Chest X-Ray : Additional Comments CHEST RADIOGRAPH INDICATION: CP TECHNIQUE: Single frontal view of the chest was obtained COMPARISON: DI CHEST,SINGLE VIEW on DOS: 06/28/25, DI CHEST,SINGLE VIEW on DOS: 03/10/25, DI CHEST,SINGLE VIEW on DOS: 02/03/24, DI CHEST,SINGLE VIEW on DOS: 01/05/24, DI CHEST,SINGLE VIEW on DOS: 12/09/23 FINDINGS: Lines and Tubes: Pacemaker/ AICD in the left chest with 2 cardiac leads. Lungs: Clear Pleura: No effusion. No pneumothorax. Cardiomediastinal contours: Unremarkable Bones: Unremarkable IMPRESSION: 1. No radiographic evidence of acute cardiopulmonary abnormality. Heart Score: Heart Score Response (Comments) Value History Slightly Suspicious 0 EKG Normal 0 Age >65 2 Risk Factors 1 or 2 risk factors 1 Troponin Normal limit 0 Total 3 Medical Decision Making Additional information obtaine: old records Findings Patient is noncompliant with taking her Lasix due to the need to urinate frequently. Patient is AV paced no elevation in troponin or proBNP. [id number] edema surrounding the ankles and +1 minimal pitting edema to the lower extremities. Vital signs are reassuring as well as labs. Discussed complaints medication and follow up with primary care as well as auto painter helper Differential Dx:Considerations: Include: Cellulitis, Deep venous thrombosis, Muscle spasm, Venous insufficiency, Other Departure Time of Disposition: 16:36 Disposition: 01 HOME / SELF CARE / HOMELESS Impression: Primary Impression: CHF (congestive heart failure) Additional Impression: Edema of lower extremity Condition: Stable Discharge Instructions: Edema, [id number] Additional Instructions: As discussed during our encounter it is imperative to take your Lasix to reduce the occurrence of edema to your lower extremities continue to keep them elevated when at rest and recliner. Follow up with primary care as well as your banking specialist. Monitor for any new or worsening symptoms and feel free to return to the ER. Referrals: NO PRIMARY CARE PROVIDER (PCP) Education Educated: Patient Educated regarding: diagnosis, treatment, need for follow up Signature Scribe Signature: No scribe Attestation: The note accurately reflects work and decisions made by me.Elisa HOSKINS 09/29/25 16:38 ELISA ROWE NP Sep 29, 2025 16:30
[2025-09-29 16:57] VITALS: BP 124/78; PULSE 78; O2SAT 99
[2025-09-29 17:00] VITALS: RESP 16
== END 2025-09-29 17:06 | disposition home or self-care (01) ==
LOC: ER 13:42
DX: I11.0 Hypertensive heart disease with heart failure (principal); I50.9 Heart failure, unspecified; R60.0 Localized edema; G89.29 Other chronic pain; I48.91 Unspecified atrial fibrillation; K21.9 Gastro-esophageal reflux disease without esophagitis; Z79.899 Other long term (current) drug therapy; Z88.5 Allergy status to narcotic agent; Z90.49 Acquired absence of other specified parts of digestive tract; Z90.710 Acquired absence of both cervix and uterus; Z95.0 Presence of cardiac pacemaker; Z98.890 Other specified postprocedural states
CPT/HCPCS: 36415; 71045; 80048; 83880; 84484; 85025; 93005; 99285